=== PATIENT | female | born 2000 | race Caucasian/White ===

== ENCOUNTER 2019-05-15 23:53 | Observation (INO) ==
[2019-05-16] MEDS ORDERED: ONDANSETRON INJ 2 MG/ML 2 ML VIAL ONE (00:07)
[2019-05-16] MEDS ORDERED: SODIUM CHLORIDE 0.9% 1000ML 1,000 ML IV SCH (00:15)
[2019-05-16 00:24] LABS: Hematocrit (blood only) 45.7 % (37-47); Hemoglobin 15.8 g/dL (12.0-16.0); Mean Corpuscular Hemoglobin 30.3 pg (25-34); Mean Corpuscular Hgb Conc 34.6 g/dL (32-36); Mean Corpuscular Volume 87.5 fL (80-100); Mean Platelet Volume 10.9 fL (7.4-10.4); Platelet Count 377 K/uL (130-400); RDW Coefficient of Variation 13.6 % (11.5-14.5); RDW Standard Deviation 43.9 fL (36.4-46.3); Red Blood Count 5.22 M/uL (4.2-5.4); White Blood Count 24.64 K/uL (4.8-10.8)
[2019-05-16 00:41] LABS: Albumin Level 4.5 gm/dl (3.4-5.0); BUN Creatinine Ratio 10.8 (10-20); Calcium 9.5 mg/dl (8.5-10.1); Creatinine Clr Calc Pharmacy 77.8 ml/min; Est GFR (African American) 99.4; Est GFR (Non-African American) 85.7; Potassium 3.2 mmol/L (3.5-5.1)
[2019-05-16 00:44] LABS: Albumin Globulin Ratio 1.1 (0.9-2); Bilirubin,Total 0.6 mg/dl (0.2-1); Globulin 4.2 gm/dl (2.5-4.0); Total Protein 8.7 gm/dl (6.4-8.2)
[2019-05-16 00:51] LABS: Basophils # (auto) 0.02 K/uL (0-0.2); Basophils % (auto) 0.1 %; Eosinophils # (auto) 0.14 K/uL (0-0.5); Eosinophils % (auto) 0.6 %; Immature Granulocytes # (auto) 0.11 K/uL (0.00-0.02); Immature Granulocytes % (auto) 0.4 %; Lymphocytes # (auto) 2.28 K/uL (1.2-3.4); Lymphocytes % (auto) 9.3 %; Monocytes % (auto) 6.1 %; Neutrophils # (auto) 20.59 K/uL (1.4-6.5); Neutrophils % (auto) 83.5 %; Toxic Vacuolation 1+
[2019-05-16] MEDS ORDERED: ONDANSETRON INJ 2 MG/ML 2 ML VIAL IV STA (01:39)
[2019-05-16] MEDS ORDERED: SODIUM CHLORIDE 0.9% 1000ML 1,000 ML IV ONE (01:39)
[2019-05-16] MEDS ORDERED: PROCHLORPERAZINE 1 ML IV ONE (03:34)
[2019-05-16 04:00] LABS: Appearance Urine Cloudy (Clear); Bacteria Urine Automated 1+ (Negative); Bilirubin Urine Negative (Negative); Blood Urine Trace (Negative); Color Urine Yellow; Epithelial Cell Urine Auto >30 /lpf (0-5); Glucose Urine UA Negative (Negative); Ketones Urine 1+ (Negative); Leukocyte Esterase Urine 2+ (Negative); Nitrite Urine Negative (Negative); Protein Urine 1+ (Negative); RBC Urine Automated 0-4 /hpf (0-4); Specific Gravity Urine 1.023 (1.000-1.030); Urobilinogen Urine Negative (Negative); WBC Urine Automated >30 /hpf (0-5)
[2019-05-16 04:18] LABS: Amphetamines+Metham, Urine Neg (Neg); Barbiturates, Urine Neg (Neg); Benzodiazepine, Urine Neg (Neg); Cocaine, Urine Neg (Neg); MDMA (Ecstacy), Urine Neg (Neg); Methadone, Urine Neg (Neg); Opiate, Urine Neg (Neg); Phencyclidine, Urine Neg (Neg)
--- NOTE | 2019-05-16 05:09 | History & Physical Report ---
Date of Service May 16, 2019 Assessment & Plan (1) Vomiting: Healthy 18 year old here for many episodes of vomiting which has responded to zofran and now having chest pain and shortness of breath Nausea vomiting diarrhea Likely gastroenteritis, no suspicious foods recently, sick contacts or travel, but was out night before last and could have been exposed to a virus Also a semi regular marijuana user could represent cyclic vomiting syndrome but last use was night before last Elevated white count likely secondary to demargination of neutrophils from retching. Zofran PRN for nausea will replace potassium KUB ordered Hematemesis: Likely small merari tirado tear from retching, patient says amount of blood was tiny With history of hematemesis and current chest pain and shortness of breath and intense retching concerned for possible boerhaave tear too will get CXR now to assess for any mediastinal air Reassuringly has vomited since episode with blood and she saw no bleeding. Will make NPO for now Shortness of breath: With violent retching concerned for possible pneumothorax and possible boerhaave tear Will get stat CXR Vital signs all stable oxygenating well on room air and able to talk in full sentences UTI: Patient with urinalysis positive for UTI As patient is NPO and not tolerating PO intake we will start patient on ceftriaxone Transition to oral medication as soon as she is able to tolerate DVT PPX: KASEY pike F/E/N: NPO Dispo: Med/Surg for obervation, with normal chest x ray and resolution of nausea and vomiting we can hopefully resume diet and discharge home when able to keep food and drink down (2) Diarrhea: (3) Leukocytosis: (4) Hematemesis: (5) Dyspnea: (6) Chest pain: History of Present Illness Chief Complaint: Vomiting and shortness of breath Primary Care Provider: [facility] Bing Chung is an otherwise healthy 18 year old woman who has been in her usual state of health until about 8 pm last night. She had a peanut butter and jelly sandwich around 5 pm then took a nap arising at 8 pm to extreme nausea and a half dozen episodes of vomiting and a large amount of intense dry heaving. She had one episode of hematemesis with a small amount of blood and liquid vomitus. She also had diarrhea around that time. Upon arrival to emergency department she was hemodynamically stable with all vitals WNL. During her time here she had a few further episodes of vomiting and heaving and developed a sternal chest pain. Chest pain is exacerbated by breathing particularly deep breaths. She has been feeling more short of breath since this started. On review of systems no other concerns. Labwork in emergency department significant for elevated WBC of 24.64 and hypokalemia of 3.2. Urine tests pending Received two units of normal saline in ED. She drinks about 4-6 alcoholic drinks per week and had about that many the night before last but when she woke up yesterday morning she was not feeling hungover or having any nausea. She also smokes marijuana about 12-15 times per month. She last smoked marijuana night before last. No history of vomiting like this before, no recent travel, no abnormal food. nobody around her has been sick with stomach symptoms in over a month. PMH only significant for appendicitis with appendectomy last year, and peritonsillar abscess last year. 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 feeling better from a nausea standpoint at end of interview but worse from a breathing and chest pain standpoint Allergies Allergy/AdvReac Type Severity Reaction Status Date / Time No Known Allergies Allergy Unverified 07/14/18 15:10 Home Medications Home Medications Medication Instructions Recorded Confirmed Type norethindrone-e.estradiol-iron 1 tab PO DAILY 05/16/19 05/16/19 History [Melodetta 24 Fe] ondansetron HCl [Zofran] 4 mg PO Q6H PRN #10 tab 05/16/19 Rx Past Med/Surg History Medical History No pertinent past medical history Surgical History Hx of appendectomy Social History Preferred Language: [place] [employer] [place] Manager Required: No Beliefs That Will Affect Care: None Current Living Situation: Other Current Living Situation Comment: 4 friends, student at [employer] Feels Safe at Home: Yes Smoking Status: Never smoker Hx Alcohol Use: Yes ("A few drinks a week") Hx Substance Use: Yes (Marijuana approx 10 days/month) Review of Systems Review of Systems: All systems reviewed & are unremarkable except as noted in HPI & below Physical Exam Physical Exam: Constitutional: 18 year old young woman in no apparent distress but looking somewhat uncomfortable resting in bed. converses easily Eyes: EOMMI bilaterally Neck: Supple non tender, range of motion normal, no nodes palpable Respiratory: Lung sounds vesicular throughout, good air entry globally, chest expansion appears symmetric Cardiovascular: Heart sounds dual, no murmurs rubs skips or gallops, regular rate regular rhythm. GI: Abdomen soft mildly tender in epigastric region Skin: Warm dry no rashes Results & Data Vital Signs (Past 12 Hours) Vital Signs Temp Pulse Pulse Resp BP BP Pulse Ox 05/16/19 03:50 67 18 131/69 98 05/16/19 02:40 76 16 135/74 100 05/16/19 01:00 70 18 118/63 98 05/15/19 23:55 36.9 C 110 H 16 117/83 99 Code Status & VTE Plan VTE Prophylaxis Plan VTE Prophylaxis will be ordered: Yes Supervising Physician Co-Signing Physician Notes Attending addendum: I have physically seen this patient, have supervised the medical residents activities, and agree with the H&P unless as otherwise noted. Assessment and Plan: Intractable nausea and vomiting- Main differential is that of cannabinoid hyperemesis syndrome versus viral process. Supportive treatment: Zofran 4 mg IV every 6 hours as needed, Compazine 10 mg IV every 6 hours as needed. Order KUB and portable chest x-ray. Hematemesis- Small volume is more likely suggestive of gastritis and/or esophagitis associated vomiting. Follow serial laboratories. N.p.o. Famotidine 20 mg IV every 12 hours. If persistent, consult gastroenterology UTI- Follow urine culture and sensitivity. Ceftriaxone 1 g IV daily. Remainder orders notations as noted. Resident Activity Tracking Resident Involvement: Resident Care Provided Care Provided: Adult Hospital Medicine (1) Diarrhea Diarrhea type: unspecified type Qualified Code(s): R19.7 - Diarrhea, unspecified (2) Leukocytosis Leukocytosis type: unspecified Qualified Code(s): D72.829 - Elevated white blood cell count, unspecified (3) Vomiting Nausea presence: with nausea Vomiting Intractability: intractable Vomiting type: unspecified Qualified Code(s): R11.2 - Nausea with vomiting, unspecified
--- NOTE | 2019-05-16 05:26 | Emergency Department Note ---
Entered by Suzy Molina acting as a scribe for Florence Calvillo DO History of Present Illness General Chief complaint: Vomiting Stated complaint: VOMITING Time Seen by Provider: 05/16/19 00:00 Source: patient and friends History of Present Illness Onset (ago): hour(s) (8:00PM today) Location: abdomen (vomiting) Pain Consistency: + intermittent Associated symptoms: + nausea/vomiting and + other (diarrhea) Treatments prior to arrival: none The patient is a 18 year old female with a history of appendectomy who presents to the Emergency Room with complaints of vomiting. The patient states that she took a nap this evening and woke up around 8:00PM feeling sensitive to sound and light. She proceeded to take a shower and began feeling dizzy and "drunk" with loss of balance though she did not drink any ETOH today. Additionally she began to experience nausea, vomiting, and diarrhea but was not experiencing any of these symptoms prior to her nap. She admits that she did not do anything out of the ordinary today and has no recent known exposure to illness. The patient also presents concern for a sharp pain in her RLQ which she experienced with a cough a few weeks ago but has since resolved. Of note she takes BCP's and denies any other health problems. She offers no further concerns at this time. 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 and A total of 10 systems reviewed and were otherwise negative Physical Exam Vital Signs Vital Signs - 24 hr 05/16/19 00:29 05/16/19 01:00 05/16/19 02:40 Pulse Rate [Apical] 70 76 Pulse Rhythm [Apical] Regular Respiratory Rate 18 16 Respiratory Effort / Characteristics Non-Labored Respiratory Depth Normal Blood Pressure [Right Arm] 118/63 135/74 Blood Pressure Mean [Right Arm] 81 94 Blood Pressure Position [Right Arm] Lying Pulse Oximetry 98 100 Oxygen Delivery Method Room Air Room Air Room Air 05/16/19 03:50 Pulse Rate [Apical] 67 Pulse Rhythm [Apical] Respiratory Rate 18 Respiratory Effort / Characteristics Non-Labored Respiratory Depth Normal Blood Pressure [Right Arm] 131/69 Blood Pressure Mean [Right Arm] 89 Blood Pressure Position [Right Arm] Pulse Oximetry 98 Oxygen Delivery Method Room Air General: Dry heaving during exam. HEENT: Head - normocephalic and atraumatic Pupils are equal, round, and reactive to light. Extraocular eye muscles are intact, and sclera are anicteric. Nose - moist nasal mucosa without discharge. Mouth - moist buccal mucosa. Oropharynx is nonerythematous and there is no tonsillar exudate or edema noted. Neck: Supple; no Cervical lymphadenopathy Heart: Regular rate and rhythm. There is a normal S1 and S2 with no murmurs, clicks, or gallops appreciated. Lungs: Clear to auscultation bilaterally with no wheezes, rales, or rhonchi. Abdomen: Soft, completely nontender, nondistended, with good bowel sounds. There are no palpable pulsatile masses or hepatosplenomegaly. There is no guarding, rigidity, or rebound noted. Extremities: No evidence of cyanosis, clubbing, or edema. There are easily palpable peripheral pulses. Skin: warm and dry with good turgor and no rashes, pale. Course Course 0005: Past medical records reviewed. The patient was evaluated in room A11B. A complete history and physical exam was performed. An order was placed for continuous cardiac monitoring. The patient remained in normal sinus rhythm at 75 0015: I ordered 4 mg Zofran IV 0105: I ordered Sodium Chloride 0.9% 1000ML at 999 mls/hr IV. 0107: I checked on the patient and she states that she is feeling improved and is currently drinking water. 0136: I re-checked the patient and she is vomiting again. 0148: I ordered 2 mg Zofran IV and Sodium Chloride 0.9% 1000ML at 999 mls/hr IV. 0222: I re-checked the patient and she appears very pale and states that she is not feeling much better. She was able to drink water and is going to try to sleep for awhile. 0334: I spoke to Dr. Hernandez, [facility] who will further evaluate the patient. The patient verbally expressed understanding and agreement of the treatment plan. The patient will be evaluated for further treatment. 0337: I re-checked the patient and she is persistently vomiting. She also complains of chest pain so I examined her chest wall. There is no reproducible c hest pain. Her vital signs are stable. The patient explains that her pain is between her breasts when she takes a deep breath. I discussed the case with the director of medical education and he will order a chest x-ray 0340: I ordered Compazine 5 mg IV. Administered Medications Discontinued Medications Acetaminophen (Tylenol) 650 mg PO Q6H PRN PRN Reason: Pain Stop: 06/15/19 08:02 Last Admin: 05/16/19 08:20 Dose: 650 mg Documented by: [id number] Sodium Chloride (Nss 1000ml) 1,000 mls @ 999 mls/hr IV .Q1H1M CLARICE Stop: 05/16/19 01:15 Last Infusion: 05/16/19 01:05 Dose: 0 mls/hr Documented by: [id number] Admin: 05/16/19 00:27 Dose: 999 mls/hr Documented by: [id number] Sodium Chloride (Nss 1000ml) 1,000 mls @ 999 mls/hr IV .Q1H1M ONE Stop: 05/16/19 02:39 Last Infusion: 05/16/19 02:45 Dose: 0 mls/hr Documented by: [id number] Admin: 05/16/19 01:48 Dose: 999 mls/hr Documented by: [id number] Prochlorperazine (Compazine) 1 mls @ 1 mls/min IV ONE ONE Stop: 05/16/19 03:35 Last Admin: 05/16/19 03:40 Dose: 1 mls/min Documented by: [id number] Ceftriaxone Sodium (Rocephin) 1,000 mg in 50 mls @ 100 mls/hr IV Q24H [facility] Stop: 05/21/19 05:59 Last Infusion: 05/16/19 07:17 Dose: 0 mls/hr Documented by: [id number] Admin: 05/16/19 06:06 Dose: 100 mls/hr Documented by: [id number] Potassium Chloride 30 meq/ (Sodium Chloride) 1,015 mls @ 80 mls/hr IV .[id number] [facility] Stop: 06/15/19 05:29 Last Admin: 05/16/19 06:05 Dose: 80 mls/hr Documented by: [id number] Ioversol (Optiray 320 125ml) 120 ml IV ONCE PRN PRN Reason: Interaction Checking Stop: 05/20/19 10:55 Last Admin: 05/16/19 10:56 Dose: 120 ml Documented by: [id number] Magnesium Oxide (Mag-Ox) 400 mg PO ONCE ONE Stop: 05/16/19 15:33 Last Admin: 05/16/19 15:56 Dose: 400 mg Documented by: [id number] Miscellaneous (Order Awaiting Action) 1 ea N/A QS [facility] Stop: 06/15/19 07:59 Last Admin: 05/16/19 15:07 Dose: Not Given Documented by: [id number] Admin: 05/16/19 07:17 Dose: Not Given Documented by: [id number] Ondansetron HCl (Zofran) Confirm Administered Dose 4 mg .ROUTE .STK-MED ONE Stop: 05/16/19 00:08 Last Admin: 05/16/19 00:15 Dose: 4 mg Documented by: [id number] Ondansetron HCl (Zofran) 2 mg IV NOW STA Stop: 05/16/19 01:40 Last Admin: 05/16/19 01:48 Dose: 2 mg Documented by: [id number] Potassium Chloride (Klor-Con M20) 40 meq PO NOW STA Stop: 05/16/19 15:32 Last Admin: 05/16/19 15:56 Dose: 40 meq Documented by: [id number] Medical Decision Making Differential Diagnosis Differential diagnosis includes but is not limited to gastroenteritis, dehydration, viral illness, food borne illness, amongst others considered. Medical Records Attestation: I reviewed the patient's medical records. Home Medications Current Medication List: was personally reviewed by me Laboratory Data Attestation: I reviewed the patient's lab results. Result diagrams: 05/16/19 14:55 05/16/19 14:55 Lab Results 05/16/19 05/16/19 05/16/19 Range/Units 00:05 00:05 03:18 WBC 24.64 H (4.8-10.8) K/uL RBC 5.22 (4.2-5.4) M/uL Hgb 15.8 (12.0-16.0) g/dL Hct 45.7 (37-47) % MCV 87.5 (80-100) fL MCH 30.3 (25-34) pg MCHC 34.6 (32-36) g/dL RDW Std Deviation 43.9 (36.4-46.3) fL RDW Coeff of Tamia 13.6 (11.5-14.5) % Plt Count 377 (130-400) K/uL MPV 10.9 H (7.4-10.4) fL Immature Gran % (Auto) 0.4 % Neut % (Auto) 83.5 % Lymph % (Auto) 9.3 % [place] % (Auto) 6.1 % Eos % (Auto) 0.6 % Baso % (Auto) 0.1 % Immature Gran # (Auto) 0.11 H (0.00-0.02) K/uL Neut # (Auto) 20.59 H (1.4-6.5) K/uL Lymph # (Auto) 2.28 (1.2-3.4) K/uL [place] # (Auto) 1.50 H (0.11-0.59) K/uL Eos # (Auto) 0.14 (0-0.5) K/uL Baso # (Auto) 0.02 (0-0.2) K/uL Toxic Vacuolation 1+ Sodium 139 (136-145) mmol/L Potassium 3.2 L (3.5-5.1) mmol/L Chloride 108 H (98-107) mmol/L Carbon Dioxide 23 (21-32) mmol/L Anion Gap 8.0 (3-11) BUN 10 (7-18) mg/dl Creatinine 0.96 (0.6-1.2) mg/dl Est Cr Clr Drug Dosing 77.8 ml/min Est GFR ( Amer) 99.4 Est GFR (Non-Af Amer) 85.7 BUN/Creatinine Ratio 10.8 (10-20) Glucose 121 H (70-99) mg/dl Calcium 9.5 (8.5-10.1) mg/dl Total Bilirubin 0.6 (0.2-1) mg/dl AST 19 (15-37) U/L ALT 24 (12-78) U/L Alkaline Phosphatase 57 (45-117) U/L Total Protein 8.7 H (6.4-8.2) gm/dl Albumin 4.5 (3.4-5.0) gm/dl Globulin 4.2 H (2.5-4.0) gm/dl Albumin/Globulin Ratio 1.1 (0.9-2) Urine Color Yellow Urine Appearance Cloudy A (Clear) Urine pH 5.0 (4.5-7.5) Ur Specific [place] 1.023 (1.000-1.030) Urine Protein 1+ H (Negative) Urine Glucose (UA) Negative (Negative) Urine Ketones 1+ H (Negative) Urine Blood Trace H (Negative) Urine Nitrite Negative (Negative) Urine Bilirubin Negative (Negative) Urine Urobilinogen Negative (Negative) Ur Leukocyte Esterase 2+ H (Negative) Urine WBC (Auto) >30 H (0-5) /hpf Urine RBC (Auto) 0-4 (0-4) /hpf U Hyaline Cast (Auto) 5-10 H (0-5) /lpf U Epithel Cells (Auto) >30 H (0-5) /lpf Urine Bacteria (Auto) 1+ H (Negative) POC Ur Test (NEG) Urine Opiates Screen (Neg) Ur Methadone, Qual (Neg) Urine Barbiturates (Neg) Ur Phencyclidine (PCP) (Neg) U Amphetamin/Meth Scrn (Neg) MDMA (Ecstasy) Screen (Neg) U Benzodiazepines Scrn (Neg) Ur Cocaine Metabolite (Neg) U Marijuana (THC) Screen (Neg) 05/16/19 05/16/19 Range/Units 03:18 03:53 WBC (4.8-10.8) K/uL RBC (4.2-5.4) M/uL Hgb (12.0-16.0) g/dL Hct (37-47) % MCV (80-100) fL MCH (25-34) pg MCHC (32-36) g/dL RDW Std Deviation (36.4-46.3) fL RDW Coeff of Tamia (11.5-14.5) % Plt Count (130-400) K/uL MPV (7.4-10.4) fL Immature Gran % (Auto) % Neut % (Auto) % Lymph % (Auto) % [place] % (Auto) % Eos % (Auto) % Baso % (Auto) % Immature Gran # (Auto) (0.00-0.02) K/uL Neut # (Auto) (1.4-6.5) K/uL Lymph # (Auto) (1.2-3.4) K/uL [place] # (Auto) (0.11-0.59) K/uL Eos # (Auto) (0-0.5) K/uL Baso # (Auto) (0-0.2) K/uL Toxic Vacuolation Sodium (136-145) mmol/L Potassium (3.5-5.1) mmol/L Chloride (98-107) mmol/L Carbon Dioxide (21-32) mmol/L Anion Gap (3-11) BUN (7-18) mg/dl Creatinine (0.6-1.2) mg/dl Est Cr Clr Drug Dosing ml/min Est GFR ( Amer) Est GFR (Non-Af Amer) BUN/Creatinine Ratio (10-20) Glucose (70-99) mg/dl Calcium (8.5-10.1) mg/dl Total Bilirubin (0.2-1) mg/dl AST (15-37) U/L ALT (12-78) U/L Alkaline Phosphatase (45-117) U/L Total Protein (6.4-8.2) gm/dl Albumin (3.4-5.0) gm/dl Globulin (2.5-4.0) gm/dl Albumin/Globulin Ratio (0.9-2) Urine Color Urine Appearance (Clear) Urine pH (4.5-7.5) Ur Specific [place] (1.000-1.030) Urine Protein (Negative) Urine Glucose (UA) (Negative) Urine Ketones (Negative) Urine Blood (Negative) Urine Nitrite (Negative) Urine Bilirubin (Negative) Urine Urobilinogen (Negative) Ur Leukocyte Esterase (Negative) Urine WBC (Auto) (0-5) /hpf Urine RBC (Auto) (0-4) /hpf U Hyaline Cast (Auto) (0-5) /lpf U Epithel Cells (Auto) (0-5) /lpf Urine Bacteria (Auto) (Negative) POC Ur Test NEG (NEG) Urine Opiates Screen Neg (Neg) Ur Methadone, Qual Neg (Neg) Urine Barbiturates Neg (Neg) Ur Phencyclidine (PCP) Neg (Neg) U Amphetamin/Meth Scrn Neg (Neg) MDMA (Ecstasy) Screen Neg (Neg) U Benzodiazepines Scrn Neg (Neg) Ur Cocaine Metabolite Neg (Neg) U Marijuana (THC) Screen Pos H (Neg) Blood Pressure Blood Pressure Findings: Normal blood pressure Blood Pressure Disposition: further management by hospitalist MDM Narrative The patient is a 18 year old female who presents to the Emergency Room with complaints of vomiting And diarrhea. The patient is unable to keep anything down. Laboratory studies revealed a significant Leukocytosis. Initially, we were able to gain control of the vomiting and she was able to drink clear liquids but then began to vomit again. After retching so much, the patient developed some chest discomfort. Because of the intractable vomiting, I discussed the case with the [facility] hospitalist group and they will evaluate for further management. We talked about the possibility of Boerhaave syndrome secondary to her retching. They will obtain a chest x-ray. Impression & Plan Vomiting, Diarrhea, Leukocytosis Discharge Plan Visit Data *Final* Discharge Date/Time: 05/16/19 05:04 Chief Complaint: Vomiting Stated Complaint: VOMITING ED Provider: Florence Calvillo Discharge Problem: Vomiting, Diarrhea, Leukocytosis Patient Disposition: Admitted As Inpatient Condition: Good Discharge Instructions Interventions: ED Discharge Assessment Last Done: 05/16/19 05:04 Discharge Problem: Vomiting Qualifiers: Vomiting type: unspecified Vomiting Intractability: intractable Nausea presence: with nausea Qualified Code(s): R11.2 - Nausea with vomiting, unspecified Diarrhea Qualifiers: Diarrhea type: unspecified type Qualified Code(s): R19.7 - Diarrhea, unspecified Leukocytosis Qualifiers: Leukocytosis type: unspecified Qualified Code(s): D72.829 - Elevated white blood cell count, unspecified The scribe's documentation has been prepared under my direction and personally reviewed by me in its entirety. I confirm that the note above accurately reflects all work, treatment, procedures, and medical decision making performed by me.
[2019-05-16] MEDS ORDERED: POTASSIUM CHLORIDE 30 MEQ in SODIUM CHLORIDE 0.9% 1000ML 1,000 ML IV SCH (05:30)
[2019-05-16] MEDS ORDERED: ONDANSETRON INJ 2 MG/ML 2 ML VIAL IV PRN (05:30)
[2019-05-16] MEDS ORDERED: cefTRIAXone SODIUM 1,000 MG/50 ML BAG IV SCH (06:00)
--- NOTE | 2019-05-16 06:01 | XRay Report ---
XR KUB/Abdomen 1 view CLINICAL HISTORY: 18 years-old Female presenting with N/V, abrupt onset. TECHNIQUE: Single supine view of the abdomen was obtained. COMPARISON: None. FINDINGS: Suture margin in the right lower quadrant suggest prior appendectomy. Surgical clips also noted in th e right lower quadrant. Paucity of small bowel gas nonspecific. Grossly nonobstructive bowel gas lis dung. No gross pneumoperitoneum. Allowing for bowel gas and stool, no calcifications to suggest nephrolithiasis. Few pelvic phlebolith s. Osseous structures normal. Lung bases clear. IMPRESSION: 1. No acute intra-abdominal pathology. ACT 112: Negative or not required by law. Electronically signed by: Osei Jensen M.D. 05/16/2019 6:00 AM
--- NOTE | 2019-05-16 06:19 | XRay Report ---
XR chest 2V PA/lateral CLINICAL HISTORY: 18 years-old Female presenting with Shortness of breath, left-sided chest pain. TECHNIQUE: PA and lateral views of the chest were obtained. COMPARISON: None. FINDINGS: Cardiomediastinal silhouette normal. Lungs and pleural spaces clear. Osseous structures normal. Upper abdomen normal. IMPRESSION: 1. No acute cardiopulmonary disease. ACT 112: Negative or not required by law. Electronically signed by: Osei Jensen M.D. 05/16/2019 6:18 AM
[2019-05-16] MEDS: BCP'S~ORDER AWAITING ACTION SCH ×2 (07:17→15:07)
[2019-05-16] MEDS ORDERED: ACETAMINOPHEN 325 MG TAB PO PRN (08:03)
[2019-05-16] MEDS ORDERED: OPTIRAY 320 125ml IV PRN (10:56)
--- NOTE | 2019-05-16 11:16 | CT Scan Report ---
CT angio chest PE protocol CLINICAL HISTORY: 18 years-old Female presenting with shortness of breath, left-sided chest pain, cli nical concern for pulmonary embolus. TECHNIQUE: Multidetector CT angiography of the chest was performed after administration of intravenou s contrast. 3-D volumetric and/or maximum intensity projection (MIP) images were subsequently reconst ructed for review. IV contrast: 120 mL of Optiray 320. One or more dose lowering techniques were used consistent with the principles of ALARA (as low as reasonably achievable), including automatic expos ure control, mA or kV adjustment to individual patient size, and/or use of iterative reconstruction. COMPARISON: Chest x-ray from earlier today. CT DOSE (mGy.cm): The estimated cumulative dose is 237.01 mGy.cm. FINDINGS: [facility] Historian topogram: Unremarkable. Pulmonary vasculature: The study is adequate for assessment of the pulmonary vascular tree. No filling defect within the pul monary arteries to suggest embolus. Main pulmonary artery is not enlarged. No flattening of the inter ventricular septum. No intracardiac filling defect. No reflux of contrast into the hepatic veins. Remaining chest: Soft tissues: Normal thyroid and thoracic inlet. No axillary, supraclavicular, mediastinal, or hilar lymphadenopathy. Normal aorta. Normal heart size. No pericardial or pleural effusion. Upper abdomen n ormal. Lungs and airways: No pneumothorax. Pneumomediastinum noted extending minimally into the base of the neck. In retrospect, this is appreciable on radiograph. Central airways patent. Mild bronchial wall t hickening. Pulmonary interstitial emphysema is evident at the right apex and extensively in the left lower lung. Pulmonary arteries are not significantly enlarged relative to adjacent bronchi. No interl obular septal thickening. No focal infiltrate or nodule. Musculoskeletal: Normal osseous structures. IMPRESSION: 1. No evidence of pulmonary embolus. 2. Bronchial wall thickening could be due to bronchitis or reactive airways disease such as in the s etting of asthma. 3. Pulmonary interstitial emphysema and pneumomediastinum. This also could suggest the presence of u nderlying asthma as a cause for barotrauma among other etiologies. ACT 112: Negative or not required by law. Electronically signed by: Osei Jensen M.D. 05/16/2019 11:15 AM
--- NOTE | 2019-05-16 11:30 | Electrocardiogram Report ---
Test Reason : Blood Pressure : / mmHG Vent. Rate : 063 BPM Atrial Rate : 063 BPM P-R Int : 126 ms QRS Dur : 088 ms QT Int : 426 ms P-R-T Axes : 044 070 020 degrees QTc Int : 435 ms Sinus rhythm with marked sinus arrhythmia Otherwise normal ECG No previous ECGs available Confirmed by Pawan Baca ([id number]) on 05/16/2019 11:30:15 AM Referred By: REFERRED SELF Confirmed By:Pawan Baca
--- NOTE | 2019-05-16 14:02 | Discharge Summary ---
Date of Service May 16, 2019 Admission HPI Per Admitting Provider Bing Chung is an otherwise healthy 18 year old woman who has been in her usual state of health until about 8 pm last night. She had a peanut butter and jelly sandwich around 5 pm then took a nap arising at 8 pm to extreme nausea and a half dozen episodes of vomiting and a large amount of intense dry heaving. She had one episode of hematemesis with a small amount of blood and liquid vomitus. She also had diarrhea around that time. Upon arrival to emergency department she was hemodynamically stable with all vitals WNL. During her time here she had a few further episodes of vomiting and heaving and developed a sternal chest pain. Chest pain is exacerbated by breathing particularly deep breaths. She has been feeling more short of breath since this started. On review of systems no other concerns. Labwork in emergency department significant for elevated WBC of 24.64 and hypokalemia of 3.2. Urine tests pending Received two units of normal saline in ED. She drinks about 4-6 alcoholic drinks per week and had about that many the night before last but when she woke up yesterday morning she was not feeling hungover or having any nausea. She also smokes marijuana about 12-15 times per month. She last smoked marijuana night before last. No history of vomiting like this before, no recent travel, no abnormal food. nobody around her has been sick with stomach symptoms in over a month. PMH only significant for appendicitis with appendectomy last year, and peritonsillar abscess last year. 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 converses easily Eyes: EOMMI bilaterally Neck: Supple non tender, range of motion normal, no nodes palpable Respiratory: Lung sounds vesicular throughout, good air entry globally, chest expansion appears symmetric Cardiovascular: Heart sounds dual, no murmurs rubs skips or gallops, regular rate regular rhythm. GI: Abdomen soft mildly tender in epigastric region Skin: Warm dry no rashes Principal Diagnosis Nausea/vomiting/diarrhea Discharge Exam General: Resting comfortably HEENT: NC/AT; PERRLA with EOMI; [place] conjunctiva, MMM. No erythema of posterior pharynx Neck: Supple and nontender Cardiac: RRR Lungs: CTA bilaterally Abdomen: Bowel normoactive X 4; Nontender to palpation Extremities: Warm. No edema present Neuro: No focal weakness Skin: No rash Discharge Data Allergies Allergy/AdvReac Type Severity Reaction Status Date / Time No Known Allergies Allergy Unverified 07/14/18 15:10 Consultations 05/16/19 03:34 ED Decision to Admit Stat Ordered Studies 05/16/19 10:25 CT angio chest PE protocol Urgent Hospital Course (1) Vomiting: Presented with nausea/vomiting possibly related to viral gastroenteritis vs. cyclic vomiting syndrome in setting of marijuana use. Vomiting improved over course of this admission, did not require prn anti- emetics. IV fluid hydration. Tolerating regular diet prior to discharge to home. Recommend to completely discontinue use of marijuana at home. (2) Diarrhea: Likely related to viral gastroenteritis. Diarrhea now resolved. (3) UTI (urinary tract infection): U/a positive, UC pending. Pt. is asymptomatic. Received Ceftriaxone during this admission, will d/c abx at discharge. (4) Leukocytosis: WBC 24 on admission, likely related to acute inflammation/viral infection. (5) Hematemesis: Concern for small merari tirado tear from retching. Did not have further episodes following admission. CXR negative for mediastinal air indicating boerhaave tear. Vomiting is now resolved. (6) Chest pain: C/o left sided pleuritic pain. CT chest was negative for PE (did have 1 risk factor) Chest pain is now resolving. (7) Hypokalemia: Replaced prn. K level was 3.3 and Mag level 1.6 prior to discharge -- received K 40 mEq PO and Mag oxide 400 mg PO. Electrolyte abnormalities will improve with increase in PO intake at home. No indication for follow up labs. (8) DVT prophylaxis: SCDs. Held pharmacologic ppx in setting of acute hematemesis. Discharged to home on 05/16/19. Total Time Total Time Spent Total Time Spent (In Minutes): >30 minutes Total Time Includes: Examination of the Patient, Discharge Planning, Medication Reconciliation, Communication With Other Providers and Other Discharge Plan Discharge Items Patient Disposition: Home - Self-Care Reason For Visit: VOMITING, SHORTNESS OF BREATH, HEMATEMESIS Discharge Diagnosis: Nausea/vomiting, Diarrhea Condition on Discharge: Good Goals: You have been hospitalized for an acute medical problem. During your stay at [facility], we have made an effort to correct the problem that brought you to the hospital while keeping you as comfortable as possible. Medications were used to bring your condition under control and your discharge instructions will include directions for any medications you should take after leaving the hospital. Please make sure you see your Primary Care Provider as part of your follow up plan. Activity: As commented below Exercise/Sports: Gradually increase as tolerated Non-emergency contact: Primary Care Provider Call non-emergency contact if: you have any medication questions, your symptoms worsen and you have a fever Follow-up/Referrals: [facility] [Primary Care Provider] - (FACILITY IS CLOSED) Diet: Regular Addtl Attending Provider Instructions: 1. Nausea/vomiting/diarrhea * Possibly related to viral gastroenteritis vs. cyclic vomiting syndrome in setting of marijuana use. * Discontinue use of all marijuana containing products at home. * Drink plenty of fluids -- at least 10 glasses per day - to remain hydrated. * Continue a regular diet as tolerated at home. Pending Studies at Discharge: Yes Studies:: Urine culture pending. Stand-Alone Forms: My [facility], Smoking Cessation Medications and DC Order Prescriptions: New ondansetron HCl [Zofran] 4 mg tablet 4 mg PO Q6H PRN (Reason: nausea and vomiting) Qty: 10 RF: 0 Continued norethindrone-e.estradiol-iron [Melodetta 24 Fe] 1 mg-20 mcg(24) /75 mg (4) tablet,chewable 1 tab PO DAILY RF: 0 Discharge Orders: Discharge Order (Routine); Ordered 05/16/19 Ordered By: Damaris Ridley Admission Data Admit Date/Time: 05/16/19 04:33 Attending Provider: Bernardo Flynn Admit Provider: Vladimir Ruiz Primary Care Provider: [facility] Other Providers: Srinivas Hernandez Other Interventions: Discharge Summary Assessment (RN) Last Done: 05/16/19 15:40 DC Date/Time DO NOT enter until pt leaves facility: 05/16/19 16:06 Supervising Physician Co-Signing Physician Notes Patient seen and examined on the day of discharge. I agree with the discharge summary by Damaris ASIF. I have reviewed the chart including labs, imaging and plans for discharge. patient fully recovered, no longer vomiting, tolerating diet, not requiring PRN anti-emetics no further diarrhea reviewed labs, K and Mag slightly low, will improve with her oral intake improving - Acute nausea and vomiting: either gastroenteritis or cyclic vomiting related to marijuana use completely resolved on 05/16 instructed patient to not use marijuana she will advance her diet at home - Hypokalemia, hypomagnesemia mild abnormalities still at time of discharge provided with PO replacement, should improve as her diet improves no longer with vomiting and diarrhea so no longer losing electrolytes for full details see the d/c summary Coding Level of Care Code D/C Day Management >30 mins Diagnoses Vomiting R11.2 Nausea presence: with nausea Vomiting Intractability: intractable Vomiting type: unspecified Diarrhea R19.7 Diarrhea type: unspecified type UTI (urinary tract infection) N39.0 Leukocytosis D72.829 Leukocytosis type: unspecified Hematemesis K92.0 Chest pain R07.9 Hypokalemia E87.6 DVT prophylaxis Z29.9
[2019-05-16 15:29] LABS: BUN Creatinine Ratio 5.9 (10-20); Calcium 7.8 mg/dl (8.5-10.1); Creatinine Clr Calc Pharmacy 113.4 ml/min; Est GFR (African American) 148.4; Est GFR (Non-African American) 128.1; Magnesium 1.6 mg/dl (1.8-2.4); Potassium 3.3 mmol/L (3.5-5.1)
[2019-05-16 15:30] LABS: Hematocrit (blood only) 36.6 % (37-47); Hemoglobin 12.5 g/dL (12.0-16.0); Mean Corpuscular Hemoglobin 29.6 pg (25-34); Mean Corpuscular Hgb Conc 34.2 g/dL (32-36); Mean Corpuscular Volume 86.5 fL (80-100); Mean Platelet Volume 10.5 fL (7.4-10.4); Platelet Count 269 K/uL (130-400); RDW Coefficient of Variation 13.8 % (11.5-14.5); RDW Standard Deviation 43.8 fL (36.4-46.3); Red Blood Count 4.23 M/uL (4.2-5.4); White Blood Count 11.42 K/uL (4.8-10.8)
[2019-05-16] MEDS ORDERED: POTASSIUM CHLORIDE 20 MEQ TABCR PO STA (15:31)
[2019-05-16] MEDS ORDERED: MAGNESIUM OXIDE 400 MG TAB PO ONE (15:32)
--- NOTE | 2019-05-17 00:50 | Billing Data ---
Date of Service May 17, 2019 Coding Level of Care Code 61896 OBS Care - Level 3
[2019-05-19 09:05] LABS: Marijuana Quant, GCMS Urine 143 ng/mL (<5)
== END 2019-05-16 16:06 | disposition home or self-care (01) ==
LOC: 4W 23:53 → ED 23:53 → SUATTDRO 05-16 04:33 → 4W 05-16 05:04

== ENCOUNTER 2020-02-02 07:40 | Inpatient (IN) ==
[2020-02-02] MEDS ORDERED: KETOROLAC 30 MG/ML VIAL IV STA (08:13)
[2020-02-02] MEDS ORDERED: PROMETHAZINE HCL 25 MG in SODIUM CHLORIDE 0.9% 50 ML IV STA (08:13)
[2020-02-02] MEDS ORDERED: DICYCLOMINE HCL 10 MG/ML 2 ML AMP/VIAL IM ONE (08:13)
[2020-02-02] MEDS ORDERED: SODIUM CHLORIDE 0.9% 1000ML 1,000 ML IV ONE (08:13)
[2020-02-02] MEDS ORDERED: MoRPHine SULFATE 4 MG/ML 1 ML CARP\\VIAL IV STA ×2 (08:13→10:53)
--- NOTE | 2020-02-02 08:19 | Emergency Department Note ---
History of Present Illness General Chief complaint: Abdominal Pain Stated complaint: ABD PAIN,NAUSEA,VOMITING Time Seen by Provider: 02/02/20 07:59 History of Present Illness Maximum Pain Intensity: 9 19-year-old female who presents to the emergency department with complaint of severe abdominal pain, nausea and vomiting since 1 AM this morning. The patient reports that she felt fine when she went to bed. She awoke with significant abdominal pain. The patient estimates that she has vomited approximately 10 times throughout the night. The patient reports the pain does mildly radiate into the back. She denies any pain radiating into the chest, shoulder or neck. The patient reports that standing makes the pain worse. She has no other alleviating factors for the pain. The patient reports that she has had similar pain for the past few months. She was seen by Karina Bonilla PA-C with [facility]. A HIDA scan was performed and was normal. The patient also had negative stool studies. She also underwent a pelvic ultrasound that was normal as they were concerned about the possibility of ovarian cyst. The patient reports occasional marijuana use (twice weekly). She denies any marijuana use last evening. The patient reports a dark firm stool this morning. She did not notice any bloody emesis. She denies any urinary symptoms. The patient denies . She is sexually active. She denies any vaginal discharge. She is on oral contraceptives, and reports that her periods are very irregular. The patient currently rates her discomfort a 9 out of 10. It is noted that the patient has a prior history of appendectomy. Home Medications Home Medications Medication Instructions Recorded Confirmed Type norethindrone-e.estradiol-iron 1 tab PO QAM 05/16/19 02/02/20 History [Melodetta 24 Fe] omeprazole 0 mg PO QAM 02/02/20 02/02/20 History Allergies Allergy/AdvReac Type Severity Reaction Status Date / Time No Known Allergies Allergy Verified 02/02/20 08:22 Past Med/Surg History Medical History No pertinent past medical history Surgical History Hx of appendectomy Social History Smoking Status: Never smoker Hx Alcohol Use: Yes ("A few drinks a week") Hx Substance Use: Yes (Marijuana approx 10 days/month) Preferred Language: Hungarian 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 Beliefs That Will Affect Care: None Current Living Situation: Other Current Living Situation Comment: 4 friends, student at [employer] Feels Safe at Home: Yes Assistive Devices: None Review of Systems 10 system review was performed and was negative except for pertinent positives and negatives as indicated in history of present illness Physical Exam Vital Signs Vital Signs - 24 hr 02/02/20 07:47 02/02/20 08:00 02/02/20 08:30 Temperature 36.4 C L Temperature Source Oral Pulse Rate 88 80 80 Pulse Rate [Apical] Pulse Rate [Right Finger] Pulse Rate from SpO2 Sensor 81 81 Pulse Rhythm [Apical] Pulse Rhythm [Right Finger] Pulse Strength [Right Finger] Respiratory Rate 17 16 16 Respiratory Effort / Characteristics Non-Labored Spontaneous Respiratory Depth Normal Respiratory Pattern Regular Blood Pressure 121/88 141/99 H 138/102 H Blood Pressure [Left Arm] Blood Pressure Mean 99 113 114 Blood Pressure Mean [Left Arm] Blood Pressure Position Sitting Blood Pressure Position [Left Arm] Pulse Oximetry 98 100 100 Oxygen Delivery Method Room Air Room Air Room Air Oxygen Flow Rate Sepsis Recent Fever Within 48 Hours No Sepsis New/Unexplained Change in Mental Status No Sepsis Action Taken by Nursing No Action Required 02/02/20 08:48 02/02/20 09:01 02/02/20 09:02 Temperature Temperature Source Pulse Rate 85 83 82 Pulse Rate [Apical] Pulse Rate [Right Finger] Pulse Rate from SpO2 Sensor 85 84 82 Pulse Rhythm [Apical] Pulse Rhythm [Right Finger] Pulse Strength [Right Finger] Respiratory Rate 19 20 19 Respiratory Effort / Characteristics Respiratory Depth Respiratory Pattern Blood Pressure 138/102 H 141/109 H Blood Pressure [Left Arm] Blood Pressure Mean 106 113 Blood Pressure Mean [Left Arm] Blood Pressure Position Blood Pressure Position [Left Arm] Pulse Oximetry 100 100 100 Oxygen Delivery Method Oxygen Flow Rate Sepsis Recent Fever Within 48 Hours Sepsis New/Unexplained Change in Mental Status Sepsis Action Taken by Nursing 02/02/20 09:30 02/02/20 10:00 02/02/20 10:30 Temperature Temperature Source Pulse Rate 68 68 64 Pulse Rate [Apical] Pulse Rate [Right Finger] Pulse Rate from SpO2 Sensor 69 67 65 Pulse Rhythm [Apical] Pulse Rhythm [Right Finger] Pulse Strength [Right Finger] Respiratory Rate 22 23 21 Respiratory Effort / Characteristics Respiratory Depth Respiratory Pattern Blood Pressure 141/103 H 139/99 153/95 H Blood Pressure [Left Arm] Blood Pressure Mean 111 109 107 Blood Pressure Mean [Left Arm] Blood Pressure Position Blood Pressure Position [Left Arm] Pulse Oximetry 100 100 100 Oxygen Delivery Method Oxygen Flow Rate Sepsis Recent Fever Within 48 Hours Sepsis New/Unexplained Change in Mental Status Sepsis Action Taken by Nursing 02/02/20 11:00 02/02/20 11:30 02/02/20 11:36 Temperature 36.4 C L Temperature Source Oral Pulse Rate 73 64 64 Pulse Rate [Apical] Pulse Rate [Right Finger] Pulse Rate from SpO2 Sensor 73 64 Pulse Rhythm [Apical] Pulse Rhythm [Right Finger] Pulse Strength [Right Finger] Respiratory Rate 23 21 21 Respiratory Effort / Characteristics Respiratory Depth Respiratory Pattern Blood Pressure 145/106 H 141/104 H 141/104 H Blood Pressure [Left Arm] Blood Pressure Mean 113 114 Blood Pressure Mean [Left Arm] Blood Pressure Position Blood Pressure Position [Left Arm] Pulse Oximetry 98 98 98 Oxygen Delivery Method Room Air Oxygen Flow Rate Sepsis Recent Fever Within 48 Hours Sepsis New/Unexplained Change in Mental Status Sepsis Action Taken by Nursing 02/02/20 12:05 02/02/20 14:07 02/02/20 14:15 Temperature 36.9 C 36.6 C Temperature Source Oral Temporal Artery Scan Temporal Artery Scan Pulse Rate Pulse Rate [Apical] 91 H 74 Pulse Rate [Right Finger] 64 Pulse Rate from SpO2 Sensor Pulse Rhythm [Apical] Regular Regular Pulse Rhythm [Right Finger] Regular Pulse Strength [Right Finger] Normal Respiratory Rate 16 17 12 Respiratory Effort / Characteristics Non-Labored Spontaneous Non-Labored Spontaneous Non-Labored Spontaneous Respiratory Depth Normal Normal Normal Respiratory Pattern Regular Regular Regular Blood Pressure Blood Pressure [Left Arm] 138/83 114/70 132/71 Blood Pressure Mean Blood Pressure Mean [Left Arm] 101 84 91 Blood Pressure Position Blood Pressure Position [Left Arm] Sitting Semi-fowlers Semi-fowlers Pulse Oximetry 100 97 100 Oxygen Delivery Method Room Air Nasal Cannula Nasal Cannula Oxygen Flow Rate 2 2 Sepsis Recent Fever Within 48 Hours Sepsis New/Unexplained Change in Mental Status Sepsis Action Taken by Nursing 02/02/20 14:25 02/02/20 14:35 02/02/20 14:45 Temperature 36.7 C Temperature Source Temporal Artery Scan Temporal Artery Scan Temporal Artery Scan Pulse Rate Pulse Rate [Apical] 59 L 78 70 Pulse Rate [Right Finger] Pulse Rate from SpO2 Sensor Pulse Rhythm [Apical] Regular Regular Regular Pulse Rhythm [Right Finger] Pulse Strength [Right Finger] Respiratory Rate 14 16 17 Respiratory Effort / Characteristics Non-Labored Spontaneous Non-Labored Spontaneous Non-Labored Spontaneous Respiratory Depth Normal Normal Normal Respiratory Pattern Regular Regular Regular Blood Pressure Blood Pressure [Left Arm] 117/73 144/95 H 145/93 H Blood Pressure Mean Blood Pressure Mean [Left Arm] 87 111 110 Blood Pressure Position Blood Pressure Position [Left Arm] Semi-fowlers Semi-fowlers Semi-fowlers Pulse Oximetry 100 100 100 Oxygen Delivery Method Nasal Cannula Nasal Cannula Nasal Cannula Oxygen Flow Rate 2 2 2 Sepsis Recent Fever Within 48 Hours Sepsis New/Unexplained Change in Mental Status Sepsis Action Taken by Nursing 02/02/20 14:55 02/02/20 15:10 02/02/20 15:25 Temperature Temperature Source Temporal Artery Scan Pulse Rate Pulse Rate [Apical] 61 74 72 Pulse Rate [Right Finger] Pulse Rate from SpO2 Sensor Pulse Rhythm [Apical] Regular Regular Regular Pulse Rhythm [Right Finger] Pulse Strength [Right Finger] Respiratory Rate 16 16 16 Respiratory Effort / Characteristics Non-Labored Spontaneous Non-Labored Spontaneous Non-Labored Spontaneous Respiratory Depth Normal Normal Normal Respiratory Pattern Regular Regular Regular Blood Pressure Blood Pressure [Left Arm] 157/94 H 142/93 H 144/90 H Blood Pressure Mean Blood Pressure Mean [Left Arm] 115 109 108 Blood Pressure Position Blood Pressure Position [Left Arm] Semi-fowlers Semi-fowlers Semi-fowlers Pulse Oximetry 100 100 100 Oxygen Delivery Method Nasal Cannula Nasal Cannula Nasal Cannula Oxygen Flow Rate 2 2 2 Sepsis Recent Fever Within 48 Hours Sepsis New/Unexplained Change in Mental Status Sepsis Action Taken by Nursing 02/02/20 15:40 02/02/20 15:55 Temperature Temperature Source Pulse Rate Pulse Rate [Apical] 72 74 Pulse Rate [Right Finger] Pulse Rate from SpO2 Sensor Pulse Rhythm [Apical] Regular Regular Pulse Rhythm [Right Finger] Pulse Strength [Right Finger] Respiratory Rate 15 15 Respiratory Effort / Characteristics Non-Labored Spontaneous Non-Labored Spontaneous Respiratory Depth Normal Normal Respiratory Pattern Regular Regular Blood Pressure Blood Pressure [Left Arm] 132/88 136/89 Blood Pressure Mean Blood Pressure Mean [Left Arm] 102 104 Blood Pressure Position Blood Pressure Position [Left Arm] Semi-fowlers Semi-fowlers Pulse Oximetry 100 100 Oxygen Delivery Method Nasal Cannula Nasal Cannula Oxygen Flow Rate 2 2 Sepsis Recent Fever Within 48 Hours Sepsis New/Unexplained Change in Mental Status Sepsis Action Taken by Nursing CONSTITUTIONAL: Healthy and well nourished. Patient appears in moderately severe discomfort. HEENT: Normocephalic, atraumatic. Pupils equal, round and reactive. Mucous membranes are dry. No subconjunctival hemorrhage or conjunctival injection/pallor. NECK: Full active range of motion without discomfort. RESPIRATORY: Clear to auscultation bilaterally with no wheezing, crackles, rhonchi or stridor. CARDIOVASCULAR: Regular rate and rhythm with no murmurs, rubs or gallops. GASTROINTESTINAL: Bowel sounds present in all quadrants. Patient has generalized abdominal tenderness to palpation. Rigidity, guarding or rebound. Negative CVA tenderness. MUSCULOSKELETAL: Full range of motion of all joints without discomfort. INTEGUMENTARY: No rash or other significant dermatologic conditions noted. HEMATOLOGIC: No ecchymosis or petechiae. PSYCHIATRIC: Flat affect. NEUROLOGIC: No focal neurologic deficits noted. Course Course Patient history and physical exam were performed. Nurses notes were reviewed. Vital signs were reviewed and were normal. I also reviewed prior medical records, showing that the patient was seen in the emergency department 2 times previously and January. She was also seen in the emergency department this past May with similar symptoms. The patient has had extensive work-up, including multiple CT studies of the abdomen that were normal. The patient reports that she also recently underwent a HIDA scan and pelvic ultrasound that were normal. I also discussed the case with Dr. Walton, ED attending butch solomon, regarding the possibility of SMA syndrome, and utility of CT angiography. He agreed that this may be of benefit, especially with her further GI follow-up. We also discussed the risks of radiation as well. I did engage the patient with our decision-making as well, and with shared medical decision making, the patient agreed to undergo CT angiography of the abdomen and pelvis. IV access was established, and labs were drawn. The patient was hydrated with a liter normal saline, and administered IV morphine, Toradol and Phenergan. Review of labs shows a significant leukocytosis with left shift and bandemia. Lactate is also elevated at 2.2. Random glucose is 147, otherwise remaining lab s were normal. Serum hCG was negative. CT of the abdomen and pelvis with IV contrast was concerning for an internal hernia with ischemic bowel changes. I did receive a phone call from the radiologist who recommended emergent surgical consultation. The case was also discussed with Dr. Walton, ED attending physician, who also evaluated the patient. The case was further discussed with Dr. Quinn, general surgeon, who agrees to take the patient to the OR. Upon reevaluation, the patient refused any additional analgesics or antiemetics. The patient was administered IV Unasyn. Rapid COVID-19 test was negative. Please see Dr. Quinn's dictation for further treatment and final disposition. I also received a phone call from BALDEMAR Islas who requested that I contact the patient's mother to advise her of the patient's status. I did call and spoke with one of the PACU nurses who received verbal consent from the patient to discuss her case with her parents. I then received a phone call from the patient's father, Dean Chung ([phone]). I did discuss findings and anticipated surgical treatment for the patient. Mother reports that he and his live in the [facility], and is currently trying to arrange a flight from the [facility] to [place] where they can catch another flight to [employer]. I did relay the father's phone to PACU for Dr. Quinn to contact the parents after the surgical procedure. The father was appreciative of the care provided. Administered Medications Discontinued Medications Bacitracin (Bacitracin Oint 15 Gm Tube) Confirm Administered Dose 45 appln .ROUTE .STK-MED ONE Stop: 02/02/20 12:11 Last Admin: 02/02/20 13:41 Dose: 45 appln Documented by: [id number] Bupivacaine HCl (Bupivacaine 0.5 % 5 Mg/1 Ml Mpf 30ml Vial) Confirm Administered Dose 30 ml .ROUTE .STK-MED ONE Stop: 02/02/20 12:11 Last Admin: 02/02/20 13:41 Dose: 20 ml Documented by: [id number] Dicyclomine HCl (Dicyclomine Hcl 10 Mg/Ml 2 Ml Amp/Vial) 20 mg IM NOW ONE Stop: 02/02/20 08:14 Last Admin: 02/02/20 08:44 Dose: 20 mg Documented by: [id number] Sodium Chloride (Nss 1000ml) 1,000 mls @ 999 mls/hr IV .Q1H1M ONE Stop: 02/02/20 09:13 Last Infusion: 02/02/20 09:43 Dose: 0 mls/hr Documented by: [id number] Admin: 02/02/20 08:42 Dose: 999 mls/hr Documented by: [id number] Promethazine HCl 25 mg/ Sodium (Chloride) 51 mls @ 204 mls/hr IV NOW STA Stop: 02/02/20 08:27 Last Infusion: 02/02/20 08:57 Dose: 0 mls/hr Documented by: [id number] Admin: 02/02/20 08:42 Dose: 204 mls/hr Documented by: [id number] Piperacillin Sod/Tazobactam Sod (Zosyn) 4.5 gm in 120 mls @ 240 mls/hr IV NOW ONE Stop: 02/02/20 11:22 Last Infusion: 02/02/20 11:32 Dose: 0 mls/hr Documented by: [id number] Admin: 02/02/20 11:02 Dose: 240 mls/hr Documented by: [id number] Ioversol (Optiray 320 125ml) 120 ml IV ONCE ONE Stop: 02/02/20 10:24 Last Admin: 02/02/20 10:23 Dose: 120 ml Documented by: [id number] Ketorolac Tromethamine (Ketorolac 30 Mg/Ml Vial) 30 mg IV NOW STA Stop: 02/02/20 08:14 Last Admin: 02/02/20 08:43 Dose: 30 mg Documented by: [id number] Lidocaine HCl (Lidocaine Hcl 1% 20 Ml Vial) Confirm Administered Dose 20 ml .ROUTE .STK-MED ONE Stop: 02/02/20 12:11 Last Admin: 02/02/20 13:42 Dose: 20 ml Documented by: [id number] Morphine Sulfate (Morphine Sulfate 4 Mg/Ml 1 Ml Carp\\Vial) 4 mg IV NOW STA Stop: 02/02/20 08:14 Last Admin: 02/02/20 08:43 Dose: 4 mg Documented by: [id number] Morphine Sulfate (Morphine Sulfate 4 Mg/Ml 1 Ml Carp\\Vial) 4 mg IV NOW STA Stop: 02/02/20 10:54 Last Admin: 02/02/20 11:02 Dose: 4 mg Documented by: [id number] Critical Care Time Critical Care Time: Yes Total Critical Care Time: 40 I have personally spent approximately 40 minutes of critical care time in the direct management of this patient. This includes bedside care, interpretation of diagnostic studies, and testing, discussion with consultants, patient, and family members, and other required patient management activities. This 40 minutes is in excess of all separately billable procedures. And also qualifies for critical care given small bowel ischemia from the internal hemorrhoids/small bowel obstruction. Patient is at high risk for damage/necrosis to the small bowel without emergent and prompt surgical intervention. Medical Decision Making Medical Records Attestation: I reviewed the patient's medical records. Home Medications Current Medication List: was personally reviewed by me Laboratory Data Attestation: I reviewed the patient's lab results. Result diagrams: 02/02/20 08:30 02/02/20 08:30 Lab Results 02/02/20 02/02/20 02/02/20 Range/Units 08:30 08:30 09:26 WBC 22.47 H (4.8-10.8) K/uL RBC 5.22 (4.2-5.4) M/uL Hgb 16.0 (12.0-16.0) g/dL Hct 46.7 (37-47) % MCV 89.5 (80-100) fL MCH 30.7 (25-34) pg MCHC 34.3 (32-36) g/dL RDW Std Deviation 41.3 (36.4-46.3) fL RDW Coeff of Tamia 12.7 (11.5-14.5) % Plt Count 319 (130-400) K/uL MPV 10.7 H (7.4-10.4) fL Immature Gran % (Auto) 0.4 % Neut % (Auto) 91.4 % Lymph % (Auto) 4.4 % [place] % (Auto) 3.8 % Eos % (Auto) 0.0 % Baso % (Auto) 0.0 % Neut # (Auto) 20.54 H (1.4-6.5) K/uL Lymph # (Auto) 0.99 L (1.2-3.4) K/uL [place] # (Auto) 0.85 H (0.11-0.59) K/uL Eos # (Auto) 0.00 (0-0.5) K/uL Baso # (Auto) 0.01 (0-0.2) K/uL Immature Gran # (Auto) 0.08 H (0.00-0.02) K/uL Sodium 136 (136-145) mmol/L Potassium 3.9 (3.5-5.1) mmol/L Chloride 105 (98-107) mmol/L Carbon Dioxide 22 (21-32) mmol/L Anion Gap 10.0 (3-11) BUN 10 (7-18) mg/dl Creatinine 0.75 (0.6-1.2) mg/dl Est Cr Clr Drug Dosing 104.8 ml/min Est GFR ( Amer) 133.0 Est GFR (Non-Af Amer) 114.7 BUN/Creatinine Ratio 13.5 (10-20) Glucose 147 H (70-99) mg/dl Lactate 2.2 H* (0.4-2.0) mmol/L Calcium 9.1 (8.5-10.1) mg/dl Total Bilirubin 0.3 (0.2-1) mg/dl AST 12 L (15-37) U/L ALT 17 (12-78) U/L Alkaline Phosphatase 45 (45-117) U/L Total Protein 7.6 (6.4-8.2) gm/dl Albumin 3.9 (3.4-5.0) gm/dl Globulin 3.7 (2.5-4.0) gm/dl Albumin/Globulin Ratio 1.1 (0.9-2) Lipase 112 (73-393) U/L HCG, Qual (Negative) COVID-19 Eval Order SARS-CoV-2, RNA, NAAT (NEGATIVE) 02/02/20 02/02/20 02/02/20 Range/Units 11:00 11:00 12:03 WBC (4.8-10.8) K/uL RBC (4.2-5.4) M/uL Hgb (12.0-16.0) g/dL Hct (37-47) % MCV (80-100) fL MCH (25-34) pg MCHC (32-36) g/dL RDW Std Deviation (36.4-46.3) fL RDW Coeff of Tamia (11.5-14.5) % Plt Count (130-400) K/uL MPV (7.4-10.4) fL Immature Gran % (Auto) % Neut % (Auto) % Lymph % (Auto) % [place] % (Auto) % Eos % (Auto) % Baso % (Auto) % Neut # (Auto) (1.4-6.5) K/uL Lymph # (Auto) (1.2-3.4) K/uL [place] # (Auto) (0.11-0.59) K/uL Eos # (Auto) (0-0.5) K/uL Baso # (Auto) (0-0.2) K/uL Immature Gran # (Auto) (0.00-0.02) K/uL Sodium (136-145) mmol/L Potassium (3.5-5.1) mmol/L Chloride (98-107) mmol/L Carbon Dioxide (21-32) mmol/L Anion Gap (3-11) BUN (7-18) mg/dl Creatinine (0.6-1.2) mg/dl Est Cr Clr Drug Dosing ml/min Est GFR ( Amer) Est GFR (Non-Af Amer) BUN/Creatinine Ratio (10-20) Glucose (70-99) mg/dl Lactate (0.4-2.0) mmol/L Calcium (8.5-10.1) mg/dl Total Bilirubin (0.2-1) mg/dl AST (15-37) U/L ALT (12-78) U/L Alkaline Phosphatase (45-117) U/L Total Protein (6.4-8.2) gm/dl Albumin (3.4-5.0) gm/dl Globulin (2.5-4.0) gm/dl Albumin/Globulin Ratio (0.9-2) Lipase (73-393) U/L HCG, Qual Negative (Negative) COVID-19 Eval Order [facility] SARS-CoV-2, RNA, NAAT NEGATIVE (NEGATIVE) Imaging Data Attestation: I personally reviewed and interpreted this imaging study as follows: My Impression: CT angiography of the abdomen and pelvis is concerning for a small bowel obstruction, and possible internal hernia with resulting bowel ischemia. Radiologist's Impression: CT angio abdomen pelvis w con CT DOSE: 310.93 mGy.cm CLINICAL HISTORY: Severe abdominal pain. Possible SMA syndrome. TECHNIQUE: CT angiography the abdomen and pelvis was performed in a dynamic helical fashion during intravenous administration of 120 cc of Optiray 320. MIP images were acquired. A dose lowering technique was utilized adhering to the principles of ALARA. COMPARISON STUDY: CT scan dated 01/20/2020 FINDINGS: No hepatic masses are visualized in this arterial phase study. The gallbladder appears normal. No splenic masses are visualized in the central face study. No pancreatic masses are visualized. There are no adrenal masses. No renal abnormalities are visualized. There is no evidence of abdominal aortic aneurysm. Since the prior study, the patient has developed a moderate volume of free intraperitoneal fluid. There are dilated small bowel loops. The pattern is highly suspicious for a closed loop obstruction. There is bowel wall thickening, and diminished bowel wall enhancement suspicious for ischemia. There is a mesenteric swirl sign. The findings could be secondary to an internal hernia. Emergent surgical consultation is recommended. No abnormal pelvic masses are visualized. IMPRESSION: 1. CT findings indicative of a closed loop small bowel obstruction. There is bowel wall thickening and diminished/absent bowel wall enhancement of the affected loops suggesting ischemic bowel. There is a mesenteric swirl sign, raising the possibility of an internal hernia. There is associated moderate ascites. Emergent surgical consultation is requested. 2.The scan findings were discussed with Boris Flanagan at 10:41 AM. Blood Pressure Blood Pressure Findings: Normal blood pressure MDM Narrative Patient presents the emergency department with abrupt onset of abdominal pain, nausea and vomiting. The patient has had similar episodes over the past few weeks. The patient has had several emergency department visits and follow-up with gastroenterology with no identifiable findings noted on laboratory studies or prior imaging. CT angiography was ordered for concern for possible SMA syndrome. It is noted that the patient's lactate was elevated, concerning for an ischemic process. CT angiography shows evidence for a closed-loop small bowel obstruction, as well as additional findings concerning for ischemic bowel and internal hernia. The patient was taken to the OR by our general surgeon. I do feel that this is appropriate treatment given the severity of the condition and risk for poor outcome with attempted transfer to another tertiary care facility. Impression & Plan Obstructed internal hernia, Small bowel ischemia Discharge Plan Visit Data Chief Complaint: Abdominal Pain Stated Complaint: ABD PAIN,NAUSEA,VOMITING ED Provider: Boris Walton ED Midlevel Provider: Guillermo Flanagan Discharge Problem: Obstructed internal hernia, Small bowel ischemia Discharge Instructions Interventions: ED Discharge Assessment Last Done: 02/02/20 11:36 Forms Stand Alone Forms: My [facility] Prescriptions Prescriptions: No Action norethindrone-e.estradiol-iron [Melodetta 24 Fe] 1 mg-20 mcg(24) /75 mg (4) tablet,chewable 1 tab PO QAM RF: 0 omeprazole 20 mg Tablet,Delayed Release (Dr/Ec) 0 mg PO QAM RF: 0 Referrals [facility]: [facility] [Primary Care Provider] -
[2020-02-02 09:03] LABS: Hematocrit (blood only) 46.7 % (37-47); Mean Corpuscular Hemoglobin 30.7 pg (25-34); Mean Corpuscular Hgb Conc 34.3 g/dL (32-36); Mean Corpuscular Volume 89.5 fL (80-100); Mean Platelet Volume 10.7 fL (7.4-10.4); Platelet Count 319 K/uL (130-400); RDW Coefficient of Variation 12.7 % (11.5-14.5); RDW Standard Deviation 41.3 fL (36.4-46.3); Red Blood Count 5.22 M/uL (4.2-5.4); White Blood Count 22.47 K/uL (4.8-10.8)
[2020-02-02 09:23] LABS: Albumin Level 3.9 gm/dl (3.4-5.0); BUN Creatinine Ratio 13.5 (10-20); Calcium 9.1 mg/dl (8.5-10.1); Creatinine Clr Calc Pharmacy 104.8 ml/min; Est GFR (Non-African American) 114.7; Potassium 3.9 mmol/L (3.5-5.1)
[2020-02-02 09:26] LABS: Albumin Globulin Ratio 1.1 (0.9-2); Bilirubin,Total 0.3 mg/dl (0.2-1); Globulin 3.7 gm/dl (2.5-4.0); Total Protein 7.6 gm/dl (6.4-8.2)
[2020-02-02 09:29] LABS: Basophils # (auto) 0.01 K/uL (0-0.2); Immature Granulocytes # (auto) 0.08 K/uL (0.00-0.02); Immature Granulocytes % (auto) 0.4 %; Lymphocytes # (auto) 0.99 K/uL (1.2-3.4); Lymphocytes % (auto) 4.4 %; Monocytes # (auto) 0.85 K/uL (0.11-0.59); Monocytes % (auto) 3.8 %; Neutrophils # (auto) 20.54 K/uL (1.4-6.5); Neutrophils % (auto) 91.4 %
[2020-02-02] MEDS ORDERED: OPTIRAY 320 125ml IV ONE (10:23)
--- NOTE | 2020-02-02 10:47 | CT Scan Report ---
CT angio abdomen pelvis w con CT DOSE: 310.93 mGy.cm CLINICAL HISTORY: Severe abdominal pain. Possible SMA syndrome. TECHNIQUE: CT angiography the abdomen and pelvis was performed in a dynamic helical fashion during in travenous administration of 120 cc of Optiray 320. MIP images were acquired. A dose lowering techniq ue was utilized adhering to the principles of ALARA. COMPARISON STUDY: CT scan dated 01/20/2020 FINDINGS: No hepatic masses are visualized in this arterial phase study. The gallbladder appears normal. No splenic masses are visualized in the central face study. No pancreatic masses are visualized. There are no adrenal masses. No renal abnormalities are visualized. There is no evidence of abdominal aortic aneurysm. Since the prior study, the patient has developed a moderate volume of free intraperitoneal fluid. The re are dilated small bowel loops. The pattern is highly suspicious for a closed loop obstruction. The re is bowel wall thickening, and diminished bowel wall enhancement suspicious for ischemia. There is a mesenteric swirl sign. The findings could be secondary to an internal hernia. Emergent surgical con sultation is recommended. No abnormal pelvic masses are visualized. IMPRESSION: 1. CT findings indicative of a closed loop small bowel obstruction. There is bowel wall thickening an d diminished/absent bowel wall enhancement of the affected loops suggesting ischemic bowel. There is a mesenteric swirl sign, raising the possibility of an internal hernia. There is associated moderate ascites. Emergent surgical consultation is requested. 2.The scan findings were discussed with Boris Flanagan at 10:41 AM. ACT 112: Negative or not required by law. Electronically signed by: Frandy Aaron M.D. 02/02/2020 10:45 AM
[2020-02-02] MEDS ORDERED: PIPERACILLIN/TAZOBACTAM 4.5 GM/120 ML BAG IV ONE (10:53)
[2020-02-02] MEDS ORDERED: PIPERACILL/TAZOBAC CONSULT ACTIVE PRN ×2 (10:53→17:15)
--- NOTE | 2020-02-02 11:21 | Surgery Consultation ---
Date of Consultation February 02, 2020 Assessment & Plan (1) Abdominal pain, epigastric: (2) Internal hernia: pt is a 19 year-old female who presents to ER with 2 weeks history abdominal pain with nausea and vomiting, CT scan - IMPRESSION: 1. CT findings indicative of a closed loop small bowel obstruction. There is bowel wall thickening and diminished/absent bowel wall enhancement of the affected loops suggesting ischemic bowel. There is a mesenteric swirl sign, raising the possibility of an internal hernia. There is associated moderate ascites. Emergent surgical consultation is requested. 2.The scan findings were discussed with Boris Flanagan at 10:41 AM. IMP: acute abdominal pain, internal hernia, ischemic bowel? Plan, I recommend to do emergent exploratory laparotomy, possible bowel resection, stoma, D/W benefits, risks and alternatives of the surgery, the risks - infection, bleeding, sepsis, abscess, multiple organs failure, anastomotic leak, bowel obstruction, and , pt understood, she agrees with the surgery, I answered all questions, pre-op antibiotic Present on Admission?: Yes (3) Ischemic necrosis of small bowel: History of Present Illness History of Present Illness History of Present Illness General Chief complaint: Abdominal Pain Stated complaint: ABD PAIN,NAUSEA,VOMITING Time Seen by Provider: 02/02/20 07:59 History of Present Illness Maximum Pain Intensity: 9 19-year-old female who presents to the emergency department with complaint of severe abdominal pain, nausea and vomiting since 1 AM this morning. The patient reports that she felt fine when she went to bed. She awoke with significant abdominal pain. The patient estimates that she has vomited approximately 10 times throughout the night. The patient reports the pain does mildly radiate into the back. She denies any pain radiating into the chest, shoulder or neck. The patient reports that standing makes the pain worse. She has no other alleviating factors for the pain. The patient reports that she has had similar pain for the past few months. She was seen by Karina Bonilla PA-C with [facility]. A HIDA scan was performed and was normal. The patient also had negative stool studies. She also underwent a pelvic ultrasound that was normal as they were concerned about the possibility of ovarian cyst. The patient reports occasional marijuana use (twice weekly). She denies any marijuana use last evening. The patient reports a dark firm stool this morning. She did not notice any bloody emesis. She denies any urinary symptoms. The patient denies . She is sexually active. She denies any vaginal discharge. She is on oral contraceptives, and reports that her periods are very irregular. The patient currently rates her discomfort a 9 out of 10. It is noted that the patient has a prior history of appendectomy. I ( Norman Quinn mD ) got a call for consult ischemic bowel, I reviewed pt's H/P, labs, CT scan with pt, pt is still have abdominal pain, located at madonna- umbilical area, 12/16, Home Medications Home Medications Medication Instructions Recorded Confirmed Type norethindrone-e.estradiol-iron 1 tab PO QAM 05/16/19 02/02/20 History [Melodetta 24 Fe] omeprazole 0 mg PO QAM 02/02/20 02/02/20 History Allergies Allergy/AdvReac Type Severity Reaction Status Date / Time No Known Allergies Allergy Verified 02/02/20 08:22 Past Med/Surg History Medical History No pertinent past medical history Surgical History Hx of appendectomy Social History Smoking Status: Never smoker Hx Alcohol Use: Yes ("A few drinks a week") Hx Substance Use: Yes (Marijuana approx 10 days/month) Preferred Language: Bahraini Time Study Analyst Required: No Beliefs That Will Affect Care: None Current Living Situation: Other Current Living Situation Comment: 4 friends, student at [employer] Feels Safe at Home: Yes Assistive Devices: None Review of Systems 10 system review was performed and was negative except for pertinent positives and negatives as indicated in history of present illness Allergies Allergy/AdvReac Type Severity Reaction Status Date / Time No Known Allergies Allergy Verified 02/02/20 08:22 Home Medications Home Medications Medication Instructions Recorded Confirmed Type norethindrone-e.estradiol-iron 1 tab PO QAM 05/16/19 02/02/20 History [Melodetta 24 Fe] omeprazole 0 mg PO QAM 02/02/20 02/02/20 History Patient History Medical History No pertinent past medical history Surgical History Hx of appendectomy Social History Smoking Status: Never smoker Hx Alcohol Use: Yes ("A few drinks a week") Hx Substance Use: Yes (Marijuana approx 10 days/month) Preferred Language: Bahraini Time Study Analyst Required: No Beliefs That Will Affect Care: None Current Living Situation: Other Current Living Situation Comment: 4 friends, student at [employer] Feels Safe at Home: Yes Assistive Devices: None Review of Systems Review of Systems: All systems reviewed & are unremarkable except as noted in HPI & below Constitutional: as per Subjective / HPI Eyes: as per Subjective / HPI Ear, Nose, Mouth, Throat: as per Subjective / HPI Respiratory: as per Subjective / HPI Cardiovascular: as per Subjective / HPI Additional Comments: chest pain Gastrointestinal: as per Subjective / HPI diarrhea, abdominal pain Genitourinary: as per Subjective / HPI UTI Musculoskeletal: as per Subjective / HPI Integumentary: as per Subjective / HPI Neurologic: as per Subjective / HPI Psychiatric: as per Subjective / HPI Endocrine: as per Subjective / HPI Hematologic / Lymphatic: as per Subjective / HPI Physical Exam Constitutional: WD/WN, vitals as above well developed, well nourished, + acute distress and + ill appearing Eyes: PERRL, conjunctivae normal, anicteric sclerae ENMT: external ear and nose normal, oropharynx normal Neck: trachea midline, no thyromegaly Respiratory: normal respiratory effort, lungs clear to auscultation normal respiratory effort Cardiovascular: RRR, no murmur, no edema Rate/Rhythm: regular rate and regular rhythm Heart Sounds: normal S1 and normal S2 Gastrointestinal (Abdomen): Percussion/Palpation: + abdomen tender and + guarding tenderness at madonna-umbilical area, with rebound pain, BS -, mild distend, Musculoskeletal: no cyanosis or clubbing, extremities motor strength 5/5 Skin: no rashes, warm and dry Neurologic: patellar DTR's 2+ bilat, sensation intact Psychiatric: Orientation: alert and oriented x 3 Results & Data ([facility]) Vital Signs (Past 12 Hours) Vital Signs Temp Pulse Resp BP Pulse Ox 02/02/20 11:00 73 23 145/106 H 98 02/02/20 10:30 64 21 153/95 H 100 02/02/20 10:00 68 23 139/99 100 02/02/20 09:30 68 22 141/103 H 100 02/02/20 09:02 82 19 100 02/02/20 09:01 83 20 141/109 H 100 02/02/20 08:48 85 19 138/102 H 100 02/02/20 08:30 80 16 138/102 H 100 02/02/20 08:00 80 16 141/99 H 100 02/02/20 07:47 36.4 C L 88 17 121/88 98 Laboratory Results Abnormal lab results 02/02/20 02/02/20 02/02/20 Range/Units 08:30 08:30 09:26 WBC 22.47 H (4.8-10.8) K/uL MPV 10.7 H (7.4-10.4) fL Neut # (Auto) 20.54 H (1.4-6.5) K/uL Lymph # (Auto) 0.99 L (1.2-3.4) K/uL [place] # (Auto) 0.85 H (0.11-0.59) K/uL Immature Gran # (Auto) 0.08 H (0.00-0.02) K/uL Glucose 147 H (70-99) mg/dl Lactate 2.2 H* (0.4-2.0) mmol/L AST 12 L (15-37) U/L Diagnostic Findings CT angio abdomen pelvis w con CT DOSE: 310.93 mGy.cm CLINICAL HISTORY: Severe abdominal pain. Possible SMA syndrome. TECHNIQUE: CT angiography the abdomen and pelvis was performed in a dynamic helical fashion during intravenous administration of 120 cc of Optiray 320. MIP images were acquired. A dose lowering technique was utilized adhering to the principles of ALARA. COMPARISON STUDY: CT scan dated 01/20/2020 FINDINGS: No hepatic masses are visualized in this arterial phase study. The gallbladder appears normal. No splenic masses are visualized in the central face study. No pancreatic masses are visualized. There are no adrenal masses. No renal abnormalities are visualized. There is no evidence of abdominal aortic aneurysm. Since the prior study, the patient has developed a moderate volume of free intraperitoneal fluid. There are dilated small bowel loops. The pattern is highly suspicious for a closed loop obstruction. There is bowel wall thickening, and diminished bowel wall enhancement suspicious for ischemia. There is a mesenteric swirl sign. The findings could be secondary to an internal hernia. Emergent surgical consultation is recommended. No abnormal pelvic masses are visualized.
--- NOTE | 2020-02-02 11:32 | History & Physical Bridge Note ---
Date of Service February 02, 2020 History & Physical Bridge Note I have examined the patient, reviewed the History & Physical and in the interval since the performance of the History & Physical I have noted the following changes of clinical significance: no changes noted
--- NOTE | 2020-02-02 11:42 | Anesthesiology Consultation ---
Date of Service February 02, 2020 Assessment & Plan Chart Review Chart Review: Acceptable Risk for Surgery and Patient NOT seen in Pre Admission Testing Consults Requested none ASA [id number] Proposed Anesthesia Anesthesia Type: General History Surgery Operation Date: 02/02/20 10:40 Proposed Procedures p Exploratory Laparotomy, Bowel Obstruction - Norman Quinn MD Height/Weight Height: 5 ft 6 in Weight: 55.5 kg Allergies Allergy/AdvReac Type Severity Reaction Status Date / Time No Known Allergies Allergy Verified 02/02/20 08:22 Medications Home Medications Medication Instructions Recorded Confirmed Last Taken norethindrone-e.estradiol-iron 1 tab PO QAM 05/16/19 02/02/20 02/02/20 [Melodetta 24 Fe] omeprazole 0 mg PO QAM 02/02/20 02/02/20 02/02/20 NPO Date Last Intake of Fluids: 02/02/20 Time Last Intake of Fluids: 07:20 Date Last Intake of Solids: 02/02/20 Time Last Intake of Solids: 00:20 Past Medical History Medical History No pertinent past medical history Exercise / Class Metabolic Activity 1 > 8 Run/Swim/Ski/Tennis Past Surgical History Surgical History Hx of appendectomy Past Anesthesia History No Hx of Anesthesia Complications and No Family Hx of Anesthesia Complications History of PONV No Hx of PONV and No Hx of Motion Sickness Social History Smoking Status: Never smoker Hx Alcohol Use: Yes ("A few drinks a week") Hx Substance Use: Yes (Marijuana approx 10 days/month) substance use type: marijuana Physical Exam Vital Signs Last Vital Signs Temp 36.4 C L 02/02/20 11:36 Pulse 64 02/02/20 11:36 Resp 21 02/02/20 11:36 BP 141/104 H 02/02/20 11:36 Pulse Ox 98 02/02/20 11:36 Constitutional not obese ENMT Mouth: no dentition abnormality Thyromental Distance: < 3.5 Finger Breadths Mallampati Class: II Neck normal visual inspection and trachea midline; neck extension not limited Respiratory normal respiratory effort Auscultation: lungs clear to auscultation bilaterally Cardiovascular Rate/Rhythm: regular rate and regular rhythm Heart Sounds: no murmur Vessels: no carotid bruit Musculoskeletal Spine: normal cervical ROM Extremities: extremities normal to inspection Neurologic moves all extremities Motor/Sensory: no sensory deficit Psychiatric Orientation: alert and oriented x 3 Testing Laboratory Results 02/02/20 08:30 02/02/20 08:30
[2020-02-02] MEDS ORDERED: BUPIVACAINE 0.5 % 5 MG/1 ML MPF 30ML VIAL ONE (12:10)
[2020-02-02] MEDS ORDERED: BACITRACIN OINT 15 GM TUBE ONE (12:10)
[2020-02-02] MEDS ORDERED: LIDOCAINE HCL 1% 20 ML VIAL ONE (12:10)
[2020-02-02 12:33] LABS: Pregnancy Test, Serum Negative (Negative)
[2020-02-02] MEDS ORDERED: fentaNYL citrate 100 MCG/2 ML VIAL ONE ×2 (12:38→13:08)
[2020-02-02] MEDS ORDERED: MIDAZOLAM HCL 1 MG/ML 2ML VIAL ONE (12:38)
[2020-02-02] MEDS ORDERED: NALOXONE HCL 0.4 MG/1 ML VIAL/CARP IV PRN (12:56)
[2020-02-02] MEDS ORDERED: FLUMAZENIL 0.1 MG/1 ML 10 ML VIAL IV PRN (12:56)
[2020-02-02] MEDS ORDERED: HYDROmorphone INJ 1 MG/ML SYRINGE IV PRN (12:56)
[2020-02-02] MEDS ORDERED: PROMETHAZINE HCL 12.5 MG in SODIUM CHLORIDE 0.9% 50 ML IV PRN (12:56)
[2020-02-02] MEDS ORDERED: ONDANSETRON INJ 2 MG/ML 2 ML VIAL IV PRN (12:56)
[2020-02-02] MEDS ORDERED: fentaNYL citrate 100 MCG/2 ML VIAL IV PRN (12:56)
[2020-02-02] MEDS ORDERED: ePHEDrine sulfate 50 MG/ML AMP IV PRN (12:56)
[2020-02-02] MEDS ORDERED: ATROPINE SULFATE 0.1 MG/ML 10ML SYR IV PRN (12:56)
[2020-02-02] MEDS ORDERED: HYDROmorphone INJ 2 MG/ML SYR/VIAL ONE (12:59)
[2020-02-02] MEDS ORDERED: KETAMINE 50 MG/5 ML SYRINGE ONE (13:07)
[2020-02-02] MEDS ORDERED: LIDOCAINE HCL 2% 2 ML VIAL/AMP(20MG/ML) INFIL ONE (13:30)
[2020-02-02] MEDS ORDERED: NEOSTIGMINE METHYLSULFATE 5 MG/5 ML SYR ONE (13:30)
[2020-02-02] MEDS ORDERED: PROPOFOL IV EMULSION 10 MG/ML 20 ML VIAL IV ONE (13:30)
[2020-02-02] MEDS ORDERED: DEXAMETHASONE SOD INJ 4 MG/ML VIAL ONE (13:30)
[2020-02-02] MEDS ORDERED: GLYCOPYRROLATE 0.2 MG/ML VIAL ONE ×2 (13:30→13:57)
[2020-02-02] MEDS ORDERED: ONDANSETRON INJ 2 MG/ML 2 ML VIAL ONE (13:30)
--- NOTE | 2020-02-02 14:01 | Post Operative Brief Note ---
Immediate Post Op Note v1 Date of Surgery February 02, 2020 Pre & Post Diagnosis Operation Date: 02/02/20 10:40 Pre-Op Diagnosis: Internal Hernia, Ischemic Bowel Post-Op Diagnosis: Internal Hernia, Ischemic Bowel, Foreign Body from Small Bowel., mesentery rotation I identified the patient and participated in the time-out.: Yes Procedure Operation Date: 02/02/20 10:40 Actual Procedures p Exploratory Laparotomy, Lyses of Adhesions , remove foreign body ( 6mm mental wire) - Nomran Quinn MD Surgeon Norman Quinn MD Weapons System Instrument Mechanic surgical services director Estimated Blood Loss 10 Findings Consistent with Post-Op Diagnosis internal hernia, ischemia small bowel, about 70cm, mesentery rotation, 6 mm mental wire on small bowel, Fluids 2100ml Specimens mental wire Drains Martins Catheter Anesthesia Type General Complications none Disposition Accompanied Patient To Recovery: Yes Disposition: Recovery Room Overlapping Procedure I was immediately available: during the entire case.
--- NOTE | 2020-02-02 14:49 | Anesthesiology Progress Note ---
Date of Service February 02, 2020 Anesthesia Post Procedure Vital Signs Vital Signs: Temp Pulse Pulse Pulse Resp BP BP 02/02/20 14:35 78 16 144/95 H 02/02/20 14:25 59 L 14 117/73 02/02/20 14:15 74 12 132/71 02/02/20 14:07 36.6 C 91 H 17 114/70 02/02/20 12:05 36.9 C 64 16 138/83 02/02/20 11:36 36.4 C L 64 21 141/104 H 02/02/20 11:30 64 21 141/104 H 02/02/20 11:00 73 23 145/106 H 02/02/20 10:30 64 21 153/95 H 02/02/20 10:00 68 23 139/99 02/02/20 09:30 68 22 141/103 H 02/02/20 09:02 82 19 02/02/20 09:01 83 20 141/109 H 02/02/20 08:48 85 19 138/102 H 02/02/20 08:30 80 16 138/102 H 02/02/20 08:00 80 16 141/99 H 02/02/20 07:47 36.4 C L 88 17 121/88 Pulse Ox 02/02/20 14:35 100 02/02/20 14:25 100 02/02/20 14:15 100 02/02/20 14:07 97 02/02/20 12:05 100 02/02/20 11:36 98 02/02/20 11:30 98 02/02/20 11:00 98 02/02/20 10:30 100 02/02/20 10:00 100 02/02/20 09:30 100 02/02/20 09:02 100 02/02/20 09:01 100 02/02/20 08:48 100 02/02/20 08:30 100 02/02/20 08:00 100 02/02/20 07:47 98 Pain Intensity Abdomen: Pain Intensity: 2 Transfer of Care Handoff Completed per policy Notes Mental Status: alert / awake / arousable Patient Amnestic to Procedure: Yes Nausea / Vomiting: adequately controlled Pain: adequately controlled Airway Patency, RR, SpO2: stable & adequate BP & HR: stable & adequate Hydration State: stable & adequate Anesthetic Complications: no major complications apparent
--- NOTE | 2020-02-02 14:51 | Emergency Department Note ---
General (ED) Blank Date of Service February 02, 2020 I have personally evaluated this patient examined her and reviewed the pertinent labs and data. I have discussed the case with Boris Flanagan, the physician pharmacy innovation assistant and agree with the plan. Please refer to the PA note. This patient comes in with abdominal pain. On exam, she is significantly tender in the mid right abdomen. She has had 2 CAT scans done the last week or so that have been negative however given her ongoing symptoms and her high white count we felt like we need to do another CAT scan we order angiography to rule out ischemic bowel. In the meantime her lactic acid came back at greater than 2. She was hydrated with IV normal saline. She was also given IV pain medication and IV antibiotics. Her CAT scan shows what appears to be an internal hernia with ischemic portion of intestines with this. In light of this we consulted Dr. Quinn who promptly came to the emergency department saw the patient again to take her emergently to the operating room.
[2020-02-02] MEDS: D5W AND 1/2NSS + 20MEQ KCL 20 MEQ/1,000 ML BAG IV SCH (18:54)
[2020-02-02] MEDS: PIPERACILLIN/TAZOBACTAM 3.375 GM in DEXTROSE 5% 100 ML IV SCH (20:01)
[2020-02-02] MEDS: HYDROmorphone INJ 0.5 MG/0.5 ML SYR IV PRN (23:35)
[2020-02-03] MEDS: PIPERACILLIN/TAZOBACTAM 3.375 GM in DEXTROSE 5% 100 ML IV SCH ×3 (01:38→18:54)
[2020-02-03] MEDS: HYDROmorphone INJ 0.5 MG/0.5 ML SYR IV PRN ×6 (03:20→22:30)
--- NOTE | 2020-02-03 04:18 | Operative Report (OR) ---
DATE OF OPERATION: 02/02/2020 PREOPERATIVE DIAGNOSES: Internal hernia, ischemic bowel. POSTOPERATIVE DIAGNOSES: Internal hernia, ischemic bowel, foreign body on the small bowel, 8 mm metal wire from small bowel wall. OPERATION: Emergency exploratory laparotomy, lysis of adhesion, and removal of the foreign body 8 mm metal wire from the small bowel wall. SURGEON: Norman Quinn MD ANESTHESIA: General. ESTIMATED BLOOD LOSS: About 10 mL. FINDINGS: Internal hernia, ischemic bowel, about 70 cm length; foreign body one piece metal wire from small bowel. COMPLICATIONS: None. INDICATIONS FOR THE PROCEDURE: This is a 19-year-old female who presented to the ED with couple of weeks history of abdominal pain and the patient had a CT scan done today that shows internal hernia, possible ischemic bowel. Once I reviewed the patient's history, labs and CT scan with the patient, I recommended to do emergency exploratory laparotomy, possible bowel resection, stoma. I did talk to the patient about the benefits, risks, alternate procedures. I indicated the risks may include but not limited such as bleeding, infection, sepsis, abscess, multiple organ failure, bowel obstruction, even , anastomosis leak. The patient understands. She signed informed consent and I answered all questions. DETAILS OF PROCEDURE: We brought in the patient to the OR and put the patient in the supine position. The patient received SCDs on bilateral legs to prevent DVT. Also, the patient received 3.375 grams Zosyn IV for prophylactic antibiotic and the patient received general anesthesia without difficulty. Also, the patient received Martins catheter insertion. The abdomen was prepped and draped in routine sterile fashion. After timeout, I made a midline incision about 10 cm length on the abdomen and got in the abdomen without difficulty. There was some free fluid that we suctioned out and then we mobilized the small bowel and then we found the patient had ischemic small bowel. Because of the mesenteric rotation of about 360 degrees, once we rotated back the mesentery to normal position, also we found the patient had an internal hernia. The internal hernia was caused by the one piece of metal wire sticking out from the inside of small bowel to outside. We removed this piece of metal wire and the metal wire length about 8 mm, which we removed and we used 0 Vicryl to close the small bowel and no leak at all. Because the mental wire stuck outside of the bowel causing the patient's scar, thus it caused the patient's internal hernia. Thus we removed the mental wire and release the band in the scar and the release internal hernia. I use 3-0 vicron to repair small bowel where i remove the mental wire. However, once we rotated to normal position the mesentery, the small bowel ischemia and the color got better, turned to pink, and we are not 100% sure if it can completely go back to normal or not. Even we used the warm saline to pack the small bowel, but still so far looking at the small bowel, it is live. The mesentery, there is some vein congestion and based on no significant dilated bowel at this moment, we decided not to remove any small bowel. We will give 12-24 hours to see the patient how she is doing. If the patient is doing better, we do not need any more procedure. If the patient's condition is getting worse, we may have to go back to the OR for resection of some small bowel. At this moment, hemostasis obtained and once we released the internal hernia, turned to normal position the mesentery, and the small bowel turned to pink, so at this moment we decided to close the abdomen. We removed 500 mL free fluid from abdomen. We also sent the free fluid for bacterial culture. Then we used #1 PDS, closed the fascial layer with continuous running and closed subcutaneous layer by using 2-0 Vicryl continuous running and then we injected the local anesthesia by using 1% lidocaine mixed with 0.5% Marcaine around the incision site. Then we used a staple to close the skin. Then we put the dressing on. The patient tolerated the procedure well. All instrument, needle, and sponge counts were correct x2 by the end of the case. The patient transferred to recovery room in stable condition. After the procedure, I did call the patient's parents and told them about the OR finding and the procedure we did, they understand. Also I informed them we gave 12-24 hours to see how the patient is doing. If condition getting worse, we may have to take her back to the OR to check if ischemia of small bowel is getting worse or we may need to have the resection of the small bowel and if the patient did better in 12-24 hours the patient will be doing okay. They understand. I attest to the content of the Intraoperative Record and any orders documented therein. Any exceptions are noted below. HENRY
[2020-02-03] MEDS: D5W AND 1/2NSS + 20MEQ KCL 20 MEQ/1,000 ML BAG IV SCH ×3 (04:19→23:42)
[2020-02-03] MEDS: oxyCODONE/ACETAMINOPHEN 5mg/325mg TAB PO PRN (07:47)
[2020-02-03 08:47] LABS: Alanine Aminotransferase 13 U/L (12-78); Albumin Level 2.6 gm/dl (3.4-5.0); Aspartate Aminotransferase 11 U/L (15-37); BUN Creatinine Ratio 8.9 (10-20); Blood Urea Nitrogen 5 mg/dl (7-18); Calcium 8.1 mg/dl (8.5-10.1); Carbon Dioxide 24 mmol/L (21-32); Chloride 110 mmol/L (98-107); Creatinine Clr Calc Pharmacy 137.9 ml/min; Est GFR (African American) > 150.0; Est GFR (Non-African American) 133.5; Glucose 109 mg/dl (70-99); Potassium 3.9 mmol/L (3.5-5.1); Sodium 138 mmol/L (136-145)
[2020-02-03 08:52] LABS: Albumin Globulin Ratio 0.9 (0.9-2); Alkaline Phosphatase 30 U/L (45-117); Bilirubin,Total 0.4 mg/dl (0.2-1); Total Protein 5.6 gm/dl (6.4-8.2)
[2020-02-03] MEDS ORDERED: PANTOprazole 40 MG TAB PO SCH (09:00)
[2020-02-03 09:43] LABS: Basophils # (auto) 0.01 K/uL (0-0.2); Basophils % (auto) 0.1 %; Hematocrit (blood only) 35.5 % (37-47); Hemoglobin 11.8 g/dL (12.0-16.0); Immature Granulocytes # (auto) 0.03 K/uL (0.00-0.02); Immature Granulocytes % (auto) 0.2 %; Lymphocytes # (auto) 2.14 K/uL (1.2-3.4); Lymphocytes % (auto) 16.5 %; Mean Corpuscular Hemoglobin 30.2 pg (25-34); Mean Corpuscular Hgb Conc 33.2 g/dL (32-36); Mean Corpuscular Volume 90.8 fL (80-100); Mean Platelet Volume 10.4 fL (7.4-10.4); Monocytes # (auto) 1.29 K/uL (0.11-0.59); Neutrophils # (auto) 9.48 K/uL (1.4-6.5); Neutrophils % (auto) 73.2 %; Platelet Count 275 K/uL (130-400); RDW Coefficient of Variation 13.2 % (11.5-14.5); RDW Standard Deviation 43.5 fL (36.4-46.3); Red Blood Count 3.91 M/uL (4.2-5.4); White Blood Count 12.95 K/uL (4.8-10.8)
[2020-02-03 11:49] LABS: Appearance Urine Clear (Clear); Bilirubin Urine Negative (Negative); Blood Urine Negative (Negative); Color Urine Yellow; Glucose Urine UA Negative (Negative); Ketones Urine Negative (Negative); Leukocyte Esterase Urine Negative (Negative); Nitrite Urine Negative (Negative); Protein Urine Negative (Negative); Specific Gravity Urine 1.018 (1.000-1.030); Urobilinogen Urine Negative (Negative); pH Urine 7.5 (4.5-7.5)
[2020-02-03] MEDS: PANTOprazole 40 MG in SYRINGE 0 ML IV SCH (12:12)
[2020-02-03 12:19] LABS: Amphetamines+Metham, Urine Neg (Neg); Barbiturates, Urine Neg (Neg); Benzodiazepine, Urine Neg (Neg); Cocaine, Urine Neg (Neg); MDMA (Ecstacy), Urine Neg (Neg); Methadone, Urine Neg (Neg); Opiate, Urine Pos (Neg); Phencyclidine, Urine Neg (Neg)
--- NOTE | 2020-02-03 12:31 | Surgery Progress Note ---
Date of Service S/P exploratory laparotomy POD 1, pt is doing better, less abdominal pain, no nausea, no vomiting, no fever, WBC 13,000, lactate acid 0.9 today, February 03, 2020 Assessment & Plan (1) Abdominal pain, epigastric: (2) Internal hernia: pt is a 19 year-old female who presents to ER with 2 weeks history abdominal pain with nausea and vomiting, CT scan - IMPRESSION: 1. CT findings indicative of a closed loop small bowel obstruction. There is bowel wall thickening and diminished/absent bowel wall enhancement of the affected loops suggesting ischemic bowel. There is a mesenteric swirl sign, raising the possibility of an internal hernia. There is associated moderate ascites. Emergent surgical consultation is requested. 2.The scan findings were discussed with Boris Flanagan at 10:41 AM. IMP: acute abdominal pain, internal hernia, ischemic bowel? Plan, I recommend to do emergent exploratory laparotomy, possible bowel resection, stoma, D/W benefits, risks and alternatives of the surgery, the risks - infection, bleeding, sepsis, abscess, multiple organs failure, anastomotic leak, bowel obstruction, and , pt understood, she agrees with the surgery, I answered all questions, pre-op antibiotic 02/03/2020 12:30 PM I update information to pt's father and Mom, doing better, continue treatment, will F/U (3) Ischemic necrosis of small bowel: Admission and Anticipated Discharge Date Admission Date: February 02, 2020 Review of Systems Constitutional: as per Subjective / HPI Eyes: as per Subjective / HPI Ear, Nose, Mouth, Throat: as per Subjective / HPI Respiratory: as per Subjective / HPI Cardiovascular: as per Subjective / HPI Additional Comments: chest pain Gastrointestinal: as per Subjective / HPI diarrhea, abdominal pain Genitourinary: as per Subjective / HPI UTI Musculoskeletal: as per Subjective / HPI Integumentary: as per Subjective / HPI Neurologic: as per Subjective / HPI Psychiatric: as per Subjective / HPI Endocrine: as per Subjective / HPI Hematologic / Lymphatic: as per Subjective / HPI Physical Exam Constitutional: WD/WN, vitals as above well developed, well nourished, + acute distress and + ill appearing Eyes: PERRL, conjunctivae normal, anicteric sclerae ENMT: external ear and nose normal, oropharynx normal Neck: trachea midline, no thyromegaly Respiratory: normal respiratory effort, lungs clear to auscultation normal respiratory effort Cardiovascular: RRR, no murmur, no edema Rate/Rhythm: regular rate and regular rhythm Heart Sounds: normal S1 and normal S2 Gastrointestinal (Abdomen): Percussion/Palpation: + abdomen tender and abdomen soft mild tenderness at incision site, the incision intact, no redness, no distend, BS - Musculoskeletal: no cyanosis or clubbing, extremities motor strength 5/5 Skin: no rashes, warm and dry Neurologic: patellar DTR's 2+ bilat, sensation intact Psychiatric: Orientation: alert and oriented x 3 Results & Data ([facility]) Vital Signs (Past 12 Hours) Vital Signs Temp Pulse Resp BP Pulse Ox 02/03/20 11:35 36.9 C 90 18 125/88 98 02/03/20 07:34 36.9 C 84 18 125/85 98 02/03/20 03:20 36.7 C 91 H 18 126/83 97 Laboratory Results Abnormal lab results 02/03/20 02/03/20 02/03/20 Range/Units 08:06 08:06 11:13 WBC 12.95 H (4.8-10.8) K/uL RBC 3.91 L (4.2-5.4) M/uL Hgb 11.8 L D (12.0-16.0) g/dL Hct 35.5 L (37-47) % Neut # (Auto) 9.48 H (1.4-6.5) K/uL [place] # (Auto) 1.29 H (0.11-0.59) K/uL Immature Gran # (Auto) 0.03 H (0.00-0.02) K/uL Chloride 110 H (98-107) mmol/L BUN 5 L D (7-18) mg/dl Creatinine 0.57 L (0.6-1.2) mg/dl BUN/Creatinine Ratio 8.9 L (10-20) Glucose 109 H (70-99) mg/dl Calcium 8.1 L (8.5-10.1) mg/dl AST 11 L (15-37) U/L Alkaline Phosphatase 30 L (45-117) U/L Total Protein 5.6 L D (6.4-8.2) gm/dl Albumin 2.6 L (3.4-5.0) gm/dl Urine Opiates Screen Pos H (Neg) U Marijuana (THC) Screen Pos H (Neg)
[2020-02-03] MEDS: [UNRECOGNIZED DRUG - OTHER] PO SCH (20:42)
[2020-02-03] MEDS ORDERED: diphenhydrAMINE Capsule 25 MG CAP PO PRN (20:57)
[2020-02-04] MEDS: PIPERACILLIN/TAZOBACTAM 3.375 GM in DEXTROSE 5% 100 ML IV SCH ×3 (02:53→17:38)
[2020-02-04] MEDS: HYDROmorphone INJ 0.5 MG/0.5 ML SYR IV PRN ×5 (02:54→20:38)
[2020-02-04 07:51] LABS: Basophils # (auto) 0.01 K/uL (0-0.2); Basophils % (auto) 0.1 %; Eosinophils % (auto) 1.2 %; Hematocrit (blood only) 36.3 % (37-47); Hemoglobin 11.8 g/dL (12.0-16.0); Immature Granulocytes # (auto) 0.01 K/uL (0.00-0.02); Immature Granulocytes % (auto) 0.1 %; Lymphocytes # (auto) 2.87 K/uL (1.2-3.4); Lymphocytes % (auto) 35.6 %; Mean Corpuscular Hemoglobin 29.8 pg (25-34); Mean Corpuscular Hgb Conc 32.5 g/dL (32-36); Mean Corpuscular Volume 91.7 fL (80-100); Mean Platelet Volume 10.5 fL (7.4-10.4); Monocytes # (auto) 0.77 K/uL (0.11-0.59); Monocytes % (auto) 9.6 %; Neutrophils % (auto) 53.4 %; Platelet Count 239 K/uL (130-400); RDW Coefficient of Variation 13.1 % (11.5-14.5); Red Blood Count 3.96 M/uL (4.2-5.4); White Blood Count 8.06 K/uL (4.8-10.8)
--- NOTE | 2020-02-04 08:49 | Surgery Progress Note ---
Date of Service pt is doing better, not pass gas yet, no fever, less abdominal pain, normal WBC February 04, 2020 Assessment & Plan (1) Abdominal pain, epigastric: (2) Internal hernia: pt is a 19 year-old female who presents to ER with 2 weeks history abdominal pain with nausea and vomiting, CT scan - IMPRESSION: 1. CT findings indicative of a closed loop small bowel obstruction. There is bowel wall thickening and diminished/absent bowel wall enhancement of the affected loops suggesting ischemic bowel. There is a mesenteric swirl sign, raising the possibility of an internal hernia. There is associated moderate ascites. Emergent surgical consultation is requested. 2.The scan findings were discussed with Boris Flanagan at 10:41 AM. IMP: acute abdominal pain, internal hernia, ischemic bowel? Plan, I recommend to do emergent exploratory laparotomy, possible bowel resection, stoma, D/W benefits, risks and alternatives of the surgery, the risks - infection, bleeding, sepsis, abscess, multiple organs failure, anastomotic leak, bowel obstruction, and , pt understood, she agrees with the surgery, I answered all questions, pre-op antibiotic 02/03/2020 12:30 PM I update information to pt's father and Mom, doing better, continue treatment, will F/U 02/04/2020 8:49AM doing fine, clear diet, will F/U (3) Ischemic necrosis of small bowel: Admission and Anticipated Discharge Date Admission Date: February 02, 2020 Review of Systems Constitutional: as per Subjective / HPI Eyes: as per Subjective / HPI Ear, Nose, Mouth, Throat: as per Subjective / HPI Respiratory: as per Subjective / HPI Cardiovascular: as per Subjective / HPI Additional Comments: chest pain Gastrointestinal: as per Subjective / HPI diarrhea, abdominal pain Genitourinary: as per Subjective / HPI UTI Musculoskeletal: as per Subjective / HPI Integumentary: as per Subjective / HPI Neurologic: as per Subjective / HPI Psychiatric: as per Subjective / HPI Endocrine: as per Subjective / HPI Hematologic / Lymphatic: as per Subjective / HPI Physical Exam Constitutional: WD/WN, vitals as above well developed, well nourished, + acute distress and + ill appearing Eyes: PERRL, conjunctivae normal, anicteric sclerae ENMT: external ear and nose normal, oropharynx normal Neck: trachea midline, no thyromegaly Respiratory: normal respiratory effort, lungs clear to auscultation normal respiratory effort Cardiovascular: RRR, no murmur, no edema Rate/Rhythm: regular rate and regular rhythm Heart Sounds: normal S1 and normal S2 Gastrointestinal (Abdomen): Percussion/Palpation: abdomen soft mild tenderness at abdomen, no rebound pain, BS + Musculoskeletal: no cyanosis or clubbing, extremities motor strength 5/5 Skin: no rashes, warm and dry Neurologic: patellar DTR's 2+ bilat, sensation intact Psychiatric: Orientation: alert and oriented x 3 Results & Data ([facility]) Vital Signs (Past 12 Hours) Vital Signs Temp Pulse Resp BP Pulse Ox 02/04/20 07:26 36.9 C 84 16 133/88 98 02/03/20 23:09 37.1 C 74 14 130/87 99 Laboratory Results Abnormal lab results 02/03/20 02/03/20 02/03/20 Range/Units 08:06 08:06 11:13 WBC 12.95 H (4.8-10.8) K/uL RBC 3.91 L (4.2-5.4) M/uL Hgb 11.8 L D (12.0-16.0) g/dL Hct 35.5 L (37-47) % MPV (7.4-10.4) fL Neut # (Auto) 9.48 H (1.4-6.5) K/uL [place] # (Auto) 1.29 H (0.11-0.59) K/uL Immature Gran # (Auto) 0.03 H (0.00-0.02) K/uL Alkaline Phosphatase 30 L (45-117) U/L Total Protein 5.6 L D (6.4-8.2) gm/dl Urine Opiates Screen Pos H (Neg) U Marijuana (THC) Screen Pos H (Neg) 02/04/20 Range/Units 07:13 WBC (4.8-10.8) K/uL RBC 3.96 L (4.2-5.4) M/uL Hgb 11.8 L (12.0-16.0) g/dL Hct 36.3 L (37-47) % MPV 10.5 H (7.4-10.4) fL Neut # (Auto) (1.4-6.5) K/uL [place] # (Auto) 0.77 H (0.11-0.59) K/uL Immature Gran # (Auto) (0.00-0.02) K/uL Alkaline Phosphatase (45-117) U/L Total Protein (6.4-8.2) gm/dl Urine Opiates Screen (Neg) U Marijuana (THC) Screen (Neg)
[2020-02-04] MEDS ORDERED: ONDANSETRON INJ 2 MG/ML 2 ML VIAL IV PRN (08:53)
[2020-02-04] MEDS: D5W AND 1/2NSS + 20MEQ KCL 20 MEQ/1,000 ML BAG IV SCH ×2 (09:26→19:40)
[2020-02-04] MEDS: PANTOprazole 40 MG in SYRINGE 0 ML IV SCH (11:42)
[2020-02-04] MEDS: [UNRECOGNIZED DRUG - OTHER] PO SCH (20:38)
[2020-02-05] MEDS: HYDROmorphone INJ 0.5 MG/0.5 ML SYR IV PRN ×6 (00:19→21:19)
[2020-02-05] MEDS: PIPERACILLIN/TAZOBACTAM 3.375 GM in DEXTROSE 5% 100 ML IV SCH ×2 (01:38→10:25)
[2020-02-05] MEDS: D5W AND 1/2NSS + 20MEQ KCL 20 MEQ/1,000 ML BAG IV SCH ×3 (04:26→23:18)
[2020-02-05 09:37] LABS: Codeine Urine NEGATIVE ng/mL (<50); Hydrocodone Urine NEGATIVE ng/mL (<50); Hydromor Urine 537 ng/mL (<50); Marijuana Quant, GCMS Urine 97 ng/mL (<5); Morphine Urine 54 ng/mL (<50); Norhydrocodone Conf Ur NEGATIVE ng/mL (<50); Noroxycodone Urine NEGATIVE ng/mL (<50); Oxycodone Urine NEGATIVE ng/mL (<50); Oxymorph Urine NEGATIVE ng/mL (<50)
[2020-02-05] MEDS: PANTOprazole 40 MG in SYRINGE 0 ML IV SCH (11:20)
--- NOTE | 2020-02-05 11:53 | Surgery Progress Note ---
Date of Service POD 3, doing fine, no fever, less abdominal pain, not pass gas yet, February 05, 2020 Assessment & Plan (1) Abdominal pain, epigastric: (2) Internal hernia: pt is a 19 year-old female who presents to ER with 2 weeks history abdominal pain with nausea and vomiting, CT scan - IMPRESSION: 1. CT findings indicative of a closed loop small bowel obstruction. There is bowel wall thickening and diminished/absent bowel wall enhancement of the affected loops suggesting ischemic bowel. There is a mesenteric swirl sign, raising the possibility of an internal hernia. There is associated moderate ascites. Emergent surgical consultation is requested. 2.The scan findings were discussed with Boris Flanagan at 10:41 AM. IMP: acute abdominal pain, internal hernia, ischemic bowel? Plan, I recommend to do emergent exploratory laparotomy, possible bowel resection, stoma, D/W benefits, risks and alternatives of the surgery, the risks - infection, bleeding, sepsis, abscess, multiple organs failure, anastomotic leak, bowel obstruction, and , pt understood, she agrees with the surgery, I answered all questions, pre-op antibiotic 02/03/2020 12:30 PM I update information to pt's father and Mom, doing better, continue treatment, will F/U 02/04/2020 8:49AM doing fine, clear diet, will F/U 02/05/2020 12:02PM stable, continue treatment. repeat labs in am, I answered all questions pt and her father had. administrative receptionist surgeon cover this weekend, thanks, (3) Ischemic necrosis of small bowel: Admission and Anticipated Discharge Date Admission Date: February 02, 2020 Review of Systems Constitutional: as per Subjective / HPI Eyes: as per Subjective / HPI Ear, Nose, Mouth, Throat: as per Subjective / HPI Respiratory: as per Subjective / HPI Cardiovascular: as per Subjective / HPI Additional Comments: chest pain Gastrointestinal: as per Subjective / HPI diarrhea, abdominal pain Genitourinary: as per Subjective / HPI UTI Musculoskeletal: as per Subjective / HPI Integumentary: as per Subjective / HPI Neurologic: as per Subjective / HPI Psychiatric: as per Subjective / HPI Endocrine: as per Subjective / HPI Hematologic / Lymphatic: as per Subjective / HPI Physical Exam Constitutional: WD/WN, vitals as above well developed, well nourished, + acute distress and + ill appearing Eyes: PERRL, conjunctivae normal, anicteric sclerae ENMT: external ear and nose normal, oropharynx normal Neck: trachea midline, no thyromegaly Respiratory: normal respiratory effort, lungs clear to auscultation normal respiratory effort Cardiovascular: RRR, no murmur, no edema Rate/Rhythm: regular rate and regular rhythm Heart Sounds: normal S1 and normal S2 Gastrointestinal (Abdomen): Percussion/Palpation: abdomen soft ([place] incision heals well, no redness, mild tenderness at incision site, ) Musculoskeletal: no cyanosis or clubbing, extremities motor strength 5/5 Skin: no rashes, warm and dry Neurologic: patellar DTR's 2+ bilat, sensation intact Psychiatric: Orientation: alert and oriented x 3 Results & Data ([facility]) Vital Signs (Past 12 Hours) Vital Signs Temp Pulse Resp BP Pulse Ox 02/05/20 07:49 36.7 C 72 14 121/78 97
[2020-02-05] MEDS: [UNRECOGNIZED DRUG - OTHER] PO SCH (16:25)
[2020-02-05] MEDS ORDERED: Nursing to Pharmacy Communication SCH (16:30)
[2020-02-06] MEDS: HYDROmorphone INJ 0.5 MG/0.5 ML SYR IV PRN ×3 (00:40→17:42)
--- NOTE | 2020-02-06 09:43 | Surgery Progress Note ---
Date of Service February 06, 2020 Assessment & Plan (1) Obstructed internal hernia: doing well. will advance to full liquid diet. awaiting full return of bowel fx. Admission and Anticipated Discharge Date Admission Date: February 02, 2020 Subjective pt seen. feeling better each day. no n/v. pain controlled. +flatus. no bm. Physical Exam Physical Exam: alert. nad abd: soft. nd. wound c/d/i. Results & Data ([facility]) Vital Signs (Past 12 Hours) Vital Signs Temp Pulse Resp BP BP Pulse Ox 02/06/20 08:08 36.8 C 88 16 151/78 H 99 02/05/20 23:41 36.8 C 73 18 136/89 99 PG Care Time/CCT Total # of Minutes Spent Total Time Spent with Patient: Total time spent is greater than 50% in coordination of care (as documented) at patient's floor/unit and/or counseling patient: Coding Level of Care Code None Diagnoses Obstructed internal hernia K45.0
[2020-02-06] MEDS: [UNRECOGNIZED DRUG - OTHER] PO SCH (09:44)
[2020-02-06 10:07] LABS: Basophils # (auto) 0.01 K/uL (0-0.2); Basophils % (auto) 0.2 %; Eosinophils # (auto) 0.16 K/uL (0-0.5); Eosinophils % (auto) 3.1 %; Hematocrit (blood only) 42.1 % (37-47); Lymphocytes # (auto) 1.61 K/uL (1.2-3.4); Lymphocytes % (auto) 31.6 %; Mean Corpuscular Hemoglobin 30.2 pg (25-34); Mean Corpuscular Hgb Conc 33.3 g/dL (32-36); Mean Corpuscular Volume 90.9 fL (80-100); Mean Platelet Volume 10.6 fL (7.4-10.4); Monocytes # (auto) 0.35 K/uL (0.11-0.59); Monocytes % (auto) 6.9 %; Neutrophils # (auto) 2.96 K/uL (1.4-6.5); Neutrophils % (auto) 58.2 %; Platelet Count 291 K/uL (130-400); RDW Coefficient of Variation 12.6 % (11.5-14.5); Red Blood Count 4.63 M/uL (4.2-5.4); White Blood Count 5.09 K/uL (4.8-10.8)
[2020-02-06 10:41] LABS: Albumin Level 3.3 gm/dl (3.4-5.0); BUN Creatinine Ratio 5.3 (10-20); Calcium 9.9 mg/dl (8.5-10.1); Creatinine Clr Calc Pharmacy 107.7 ml/min; Est GFR (African American) 137.4; Est GFR (Non-African American) 118.6; Potassium 4.3 mmol/L (3.5-5.1)
[2020-02-06 10:44] LABS: Albumin Globulin Ratio 0.8 (0.9-2); Bilirubin,Total 0.4 mg/dl (0.2-1); Total Protein 7.3 gm/dl (6.4-8.2)
[2020-02-06] MEDS: PANTOprazole 40 MG in SYRINGE 0 ML IV SCH (11:17)
[2020-02-06] MEDS: D5W AND 1/2NSS + 20MEQ KCL 20 MEQ/1,000 ML BAG IV SCH ×2 (11:17→21:07)
[2020-02-07] MEDS: HYDROmorphone INJ 0.5 MG/0.5 ML SYR IV PRN (00:03)
[2020-02-07] MEDS: D5W AND 1/2NSS + 20MEQ KCL 20 MEQ/1,000 ML BAG IV SCH (06:21)
--- NOTE | 2020-02-07 06:46 | Surgery Progress Note ---
Date of Service February 07, 2020 Assessment & Plan (1) Obstructed internal hernia: -s/p ex lap -will continue diet advancement and once solids tolerated will d/c home -will have pt. follow-up with Dr. Quinn at time of d/c as above. feeling well. +bm. will advance to low residue diet and d/c home later today if she tolerates it. instructions given. Admission and Anticipated Discharge Date Admission Date: February 02, 2020 Subjective Pt. doing well. No N/V. She has tolerated full liquid diet without worsening abdominal pain. She reports having BM yesterday. Only minor incisional pain noted. Physical Exam Constitutional: well developed and well nourished; no acute distress Gastrointestinal (Abdomen): Percussion/Palpation: + abdomen tender (minimal incisional pain) and abdomen soft Results & Data ([facility]) Vital Signs (Past 12 Hours) Vital Signs Temp Pulse Resp BP Pulse Ox 02/06/20 23:25 36.6 C 78 16 124/89 100 PG Care Time/CCT Total # of Minutes Spent Total Time Spent with Patient: Total time spent is greater than 50% in coordination of care (as documented) at patient's floor/unit and/or counseling patient: Coding Level of Care Code None Diagnoses Obstructed internal hernia K45.0
[2020-02-07] MEDS: [UNRECOGNIZED DRUG - OTHER] PO SCH (09:24)
[2020-02-07] MEDS: oxyCODONE/ACETAMINOPHEN 5mg/325mg TAB PO PRN (09:26)
--- NOTE | 2020-02-09 04:25 | Discharge Summary (DS) ---
ADMISSION DIAGNOSIS: Small-bowel obstruction. DISCHARGE DIAGNOSIS: Small-bowel obstruction secondary to internal hernia. HOSPITAL COURSE: This patient presented to [facility] on 02/02/2020. She was experiencing abdominal pain. She was noted to have a leukocytosis. CT scan of the abdomen was undertaken in the Emergency Department showed concern for small-bowel obstruction. Dr. Quinn ultimately took the patient to the operating room on 02/02/2020 for exploratory laparotomy where an internal hernia causing ischemic bowel was identified. The patient underwent a lysis of adhesions with also removal of a metal foreign body. During patient's postoperative course, her diet was advanced as her bowel function returned. She did not experience any postoperative complications and was deemed stable for discharge home on 02/07/2020 in stable condition. The patient was instructed on appropriate wound care, diet and activity. She was told to follow up with her surgeon, Dr. Quinn in approximately 1 week.
== END 2020-02-07 10:28 | disposition home or self-care (01) | DRG 329 ==
LOC: ED 07:40 → 3N 11:36